=== PATIENT | male | born 1940 | race Caucasian/White ===

== ENCOUNTER 2017-04-06 21:07 | Inpatient (IN) | payer MEDICARE, OTHER ==
[2017-04-06 22:23] LABS: VENOUS BLOOD BASE EXCESS 4.2 mmol/L; VENOUS BLOOD HCO3 28.4 mmol/L (20-32); VENOUS BLOOD PH 7.46 (7.30-7.42)
--- NOTE | 2017-04-06 22:23 | ER Document Report ---
ED Respiratory Problem - General Chief Complaint: Breathing Difficulty Stated Complaint: DIFFICULTY BREATHING Time Seen by Provider: 04/06/17 22:02 Notes: Patient with known COPD who has had increasing cough for the past couple of days. This evening, about an hour ago, he began to have more labored and difficult respirations and was shaking. Patient has a history of dementia and is not very helpful providing history. History is obtained from his and apparently his daughter. Patient has COPD but no longer smokes. He does not have home oxygen or home nebulizers. In triage here, he is running a low-grade fever of 99.8 with a pulse rate of 124 and an O2 sat of 88% on room air. TRAVEL OUTSIDE OF THE [place] IN LAST 30 DAYS: No - Related Data Allergies/Adverse Reactions: prednisone [Prednisone] Adverse Reaction (Unknown, Verified 04/06/17 22:15) Home Medications: Current Home Medications B12/Levomefolate Calcium/B-6 [Foltx Tablet] 1 tab PO DAILY 04/06/17 [History] Benzonatate 200 mg PO TID PRN 04/06/17 [History] Hydrochlorothiazide 12.5 mg PO DAILY 04/06/17 [History] Insulin Glargine,Hum.rec.anlog [Lantus Insulin 100 Unit/1 ml 10 ml] 35 units SQ QHS 04/06/17 [History] Insulin Lispro [Humalog] See Protocol SQ PRN PRN 04/06/17 [History] Lorazepam [Ativan 0.5 mg Tablet] 0.5 mg PO BID 04/06/17 [History] Losartan Potassium 12.5 mg PO DAILY 04/06/17 [History] Primidone [Mysoline 50 mg Tablet] 50 mg PO BID 04/06/17 [History] Rivastigmine [Exelon 4.6 mg/24 Hr Transdermal Patch] 1 patch TD ASDIR PRN [History] Past Medical History - Social History Smoking Status: Former Smoker Cigarette use (# per day): No Frequency of alcohol use: None Drug Abuse: None Family History: None, Reviewed & Not Pertinent Patient has suicidal ideation: No Patient has homicidal ideation: No - Past Medical History Cardiac Medical History: Reports: Hx Hypertension Denies: Hx Coronary Artery Disease, Hx Heart Attack Pulmonary Medical History: Reports: Hx Asthma - ON SPIRIVA, Hx Bronchitis, Hx COPD, Hx Sleep Apnea Endocrine Medical History: Reports: Hx Diabetes Mellitus Type 1, Hx Diabetes Mellitus Type 2 Musculoskeltal Medical History: Reports Hx Arthritis - Immunizations Hx Diphtheria, Pertussis, Tetanus Vaccination: No Hx Pneumococcal Vaccination: 07/13/12 Review of Systems - Review of Systems Notes: REVIEW OF SYSTEMS: CONSTITUTIONAL : Denies fever. EENT: Denies eye, ear, nose or mouth or throat pain or other symptoms. CARDIOVASCULAR: Denies chest pain. RESPIRATORY: See HPI. GASTROINTESTINAL: Denies abdominal pain or nausea, vomiting, or diarrhea. GENITOURINARY: Denies difficulty or painful urinating, urinary frequency, blood in urine. MUSCULOSKELETAL: Denies back or neck pain. Denies joint pain or swelling. SKIN: Denies rash or skin lesions. NEUROLOGICAL: Denies LOC or altered mental status. patient has significant dementia and is a very poor historian. Denies headache. Denies sensory loss or motor deficits. ALL OTHER SYSTEMS REVIEWED AND NEGATIVE. Physical Exam - Vital signs Vitals: Temp Pulse Resp BP Pulse Ox 99.8 F 124 H 24 H 178/60 H 88 L 04/06/17 21:38 04/06/17 21:38 04/06/17 21:38 04/06/17 21:38 04/06/17 21:38 Interpretation: Tachycardic, Hypoxic, Tachypneic, Febrile - Low-grade - Notes Notes: PHYSICAL EXAMINATION: GENERAL: Well-appearing, in no acute distress. Pleasant and tries to answer questions, but seems confused. Vital signs are significant and abnormal with tachycardia and tachypnea. Also hypoxia of 88% on room air. Low-grade fever of 99.8. HEAD: Atraumatic, normocephalic. EYES: Pupils equal round and reactive to light, extraocular movements intact. ENT: oropharynx clear without exudates. Moist mucous membranes. NECK: Normal range of motion, supple. LUNGS: Breath sounds clear and equal bilaterally. HEART: Regular rate and rhythm without murmurs. ABDOMEN: Soft, nontender. No guarding or rebound. BACK: No tenderness throughout entire back. EXTREMITIES: Normal range of motion without pain. NEUROLOGICAL: normal gait. Normal sensory, motor, and reflex exams. Patient is not oriented.. PSYCH: Unable to assess SKIN: Warm, dry, no rashes. Course - Vital Signs Vital signs: Temp Pulse Resp BP Pulse Ox 103.9 F H 124 H 21 H 130/59 H 97 04/07/17 00:00 04/06/17 21:38 04/07/17 00:01 04/07/17 00:01 04/07/17 00:01 - Laboratory Result Diagrams: 04/06/17 22:08 04/06/17 22:08 Laboratory results interpreted by me: 04/06/17 04/06/17 04/06/17 22:08 22:08 22:08 WBC 13.0 H Hgb 13.1 L RDW 14.3 H Seg Neuts % (Manual) 88 H Lymphocytes % (Manual) 3 L Abs Neuts (Manual) 12.0 H VBG pH Sodium 126.9 L Chloride 86 L BUN 24 H Glucose 303 H Lactic Acid 2.3 H Urine Glucose (UA) 04/06/17 04/06/17 22:08 23:35 WBC Hgb RDW Seg Neuts % (Manual) Lymphocytes % (Manual) Abs Neuts (Manual) VBG pH 7.46 H Sodium Chloride BUN Glucose Lactic Acid Urine Glucose (UA) >=500 H - Diagnostic Test Radiology reviewed: Image reviewed, Reports reviewed - Chest x-ray read by radiology shows low lung volumes compatible with subsegmental atelectasis. No mention of infiltrate or pneumonia. - EKG Interpretation by Me EKG shows normal: Sinus rhythm Rate: Tachycardia Rhythm: NSR [place]/QRS: RBBB Critical Care Note - Critical Care Note Total time excluding time spent on procedures (mins): 45 Discharge - Discharge Clinical Impression: COPD exacerbation, Hyponatremia Pneumonia Qualifiers: Pneumonia type: due to unspecified organism Laterality: right Lung location: lower lobe of lung Qualified Code(s): J18.1 - Lobar pneumonia, unspecified organism Disposition: ADMITTED INPATIENT Admitting Provider: Hospitalist Unit Admitted: [facility]
[2017-04-06 22:24] LABS: HEMATOCRIT 39.5 % (37.9-51.0); HEMOGLOBIN 13.1 g/dL (13.5-17.0); HGB HCT DIFFERENCE -0.2; MEAN CORPUSCULAR HEMOGLOBIN 27.8 pg (27.0-33.4); MEAN CORPUSCULAR HGB CONC 33.1 g/dL (32.0-36.0); MEAN CORPUSCULAR VOLUME 84 fl (80-97); RED BLOOD COUNT 4.72 10^6/uL (4.35-5.55); RED CELL DISTRIBUTION WIDTH 14.3 % (11.5-14.0)
[2017-04-06] MEDS ORDERED: IPRATROPIUM/ALBUTEROL 0.5-2.5 MG/3 ML AMPUL NEB ONE (22:26)
[2017-04-06 22:35] LABS: PROTHROMBIN TIME 12.2 SEC (11.4-15.4)
[2017-04-06 22:37] LABS: ALANINE AMINOTRANSFERASE 43 U/L (21-72); ALKALINE PHOSPHATASE 124 U/L (38-126); ANION GAP 12 (5-19); ASPARTATE AMINO TRANSFERASE 48 U/L (17-59); BILIRUBIN,DIRECT 0.3 mg/dL (0.0-0.4); BILIRUBIN,TOTAL 0.8 mg/dL (0.2-1.3); BLOOD UREA NITROGEN 24 mg/dL (7-20); CALCIUM 8.8 mg/dL (8.4-10.2); CARBON DIOXIDE 29 mmol/L (22-30); CHLORIDE 86 mmol/L (98-107); CREATININE RESULT 1.16 mg/dL (0.52-1.25); GLUCOSE 303 mg/dL (75-110); POTASSIUM 4.1 mmol/L (3.6-5.0); SODIUM 126.9 mmol/L (137-145); TOTAL PROTEIN 7.4 g/dL (6.3-8.2)
--- NOTE | 2017-04-06 22:39 | RADIOLOGY REPORT (SQ) ---
EXAM DESCRIPTION: CHEST SINGLE VIEW COMPLETED DATE/TIME: 04/06/2017 10:30 pm REASON FOR STUDY: short of breath, fever, hypoxia COMPARISON: 2011. NUMBER OF VIEWS: One view. TECHNIQUE: Single frontal radiographic view of the chest acquired. LIMITATIONS: None. FINDINGS: LUNGS AND PLEURA: Low volumes with probable basilar subsegmental atelectasis. Upper lung harris are clear. MEDIASTINUM AND HILAR STRUCTURES: No masses. No contour abnormality. HEART AND VASCULAR STRUCTURES: Normal size. No evidence for failure. BONES: No acute findings. HARDWARE: None in the chest. OTHER: No other significant finding. IMPRESSION: Suspect mild basilar volume loss with generally low lung volumes. TECHNICAL DOCUMENTATION: JOB ID: [id number] [employer]- All Rights Reserved
[2017-04-06 22:40] LABS: BAND NEUTROPHILS % (MANUAL) 4 % (3-5); BASOPHILS % (MANUAL) 0 % (0-2); EOSINOPHILS % (MANUAL) 0 % (0-6); LYMPHOCYTES % (MANUAL) 3 % (13-45); TOTAL CELLS COUNTED 100
[2017-04-06 22:42] LABS: ANISOCYTOSIS SLIGHT; OVALOCYTES SLIGHT; POIKILOCYTOSIS SLIGHT
[2017-04-06] MEDS ORDERED: CEFTRIAXONE 1 GM/D5W RTU 50 ML IV ONE (23:25)
[2017-04-06] MEDS ORDERED: AZITHROMYCIN 250 MG TABLET PO ONE (23:34)
[2017-04-06] MEDS ORDERED: NORMAL SALINE 1000 ML 1,000 ML IV ONE (23:41)
[2017-04-06 23:54] LABS: APPEARANCE,URINE CLEAR; BILIRUBIN,URINE NEGATIVE (NEGATIVE); GLUCOSE, URINE >=500 mg/dL (NEGATIVE); KETONES,URINE NEGATIVE (NEGATIVE); LEUKOCYTE ESTERASE,URINE NEGATIVE (NEGATIVE); NITRITE,URINE NEGATIVE (NEGATIVE); PROTEIN,URINE NEGATIVE (NEGATIVE); URINE SPECIFIC GRAVITY 1.008; UROBILINOGEN,URINE NEGATIVE mg/dL (<2.0)
--- NOTE | 2017-04-06 23:59 | EKG REPORT ---
SEVERITY:- ABNORMAL ECG - SINUS TACHYCARDIA MULTIPLE ATRIAL PREMATURE COMPLEXES PROBABLE LEFT ATRIAL ABNORMALITY RIGHT BUNDLE BRANCH BLOCK : Confirmed by: Rosemarie Alfaro 06-Apr-2017 23:58:44
[2017-04-07] MEDS ORDERED: ACETAMINOPHEN 325 MG TABLET ONE (00:03)
[2017-04-07 00:11] LABS: ADD ON TESTING BLD IN LAB ACKNOWLEDGE
[2017-04-07 00:26] LABS: MAGNESIUM 1.6 mg/dL (1.6-2.3)
[2017-04-07] MEDS ORDERED: GLUCAGON,HUMAN RECOMB 1 MG INJ IM PRN (00:51)
[2017-04-07] MEDS ORDERED: DEXTROSE 50%-WATER 25 GM/50 ML DISP.SYRIN IV PRN ×2 (00:51)
[2017-04-07] MEDS ORDERED: DEXTROSE 40% GEL 15 GM TUBE PO PRN ×2 (00:51)
[2017-04-07] MEDS ORDERED: PROMETHAZINE HCL 25 MG TABLET PO PRN (00:54)
[2017-04-07] MEDS ORDERED: ALBUTEROL SULFATE 0.083% NEB 2.5 MG/3 ML AMPUL NEB PRN (00:55)
[2017-04-07] MEDS ORDERED: ACETAMINOPHEN 325 MG TABLET PO PRN (01:02)
[2017-04-07] MEDS ORDERED: GUAIFENESIN SYRP 200 MG/10 ML UDC PO PRN (01:02)
[2017-04-07] MEDS ORDERED: NORMAL SALINE 1000 ML 1,000 ML IV PRN (01:04)
[2017-04-07] MEDS ORDERED: METHYLPREDNISOLONE INJ 125 MG/2 ML SDV IV ONE ×2 (01:15→12:00)
--- NOTE | 2017-04-07 01:21 | PDOC H&P ---
History of Present Illness Admission Date/PCP: 04/06/17 23:46 KARO CAVANAUGH MD Patient complains of: Difficulty breathing History of Present Illness: DELLA ZHAO is a 76 year old male, with underlying non-home O2 dependent COPD, having been tobacco free for probably 30 years or more, along with obstructive sleep apnea, with CPAP, setting 3.5, who presents to the emergency room for evaluation of above complaint. Patient has been discussed with emergency room physician who evaluated the patient. Patient has underlying dementia and is able to provide basically no history whatsoever in terms of acute or chronic events, review of systems, personal habits, family history, etc. and daughter are present, with his approval, and are quite helpful and informative. old inpatient records are reviewed. Patient has a chronic cough, and chronic somewhat coarse breathing, but over the last 2 days this has gradually worsened. However, approximately an hour prior to presentation to the emergency room, breathing became much more labored and difficult, with patient having shaking chills. No nausea vomiting. No dysuria. Chronic diarrhea, without recent change. Up-to-date with flu and pneumonia vaccinations. No prior intubation for respiratory difficulty. No hospitalization over the last 3 months. His only antibiotic usage during that time span was a single intramuscular injection after patient fell on a pine cone. In triage, patient was running a low-grade fever 99.8 with a pulse rate of 124 and a room air saturation of 88%. Subsequent temperature of 104.0 in the emergency room cubicle itself. Blood pressure has remained stable. . Laboratory results are listed in [facility] and are reviewed. X-ray summary results are listed below, with full report(s) reviewed. . EKG reviewed and compared to a prior tracing from 01 February of last year. Social history/personal habits: . Has children. 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 Prior tobacco use as noted above. No alcohol or illicit drug use. Allergies/adverse reactions are listed in [facility] [facility] and are reviewed. Prednisone causes elevated blood sugar; no allergic reaction per se. Home medications initially autopopulated into [facility] may not accurately reflect patient's true medications, dosages, and/or frequencies. soils technician to reconcile medications. Unfortunately, patient not able to provide any information concerning medications/dosages/frequencies. REVIEW OF SYSTEMS: Constitutional: See history and present illness. Eyes: Wears glasses ENT: No swallowing problems or complaints. Partial hearing loss. Pulmonary: See history and present illness. Cardiovascular: No current complaints, including chest pain. Gastrointestinal: No current complaints, including nausea or vomiting. Skin: No current complaints, including rashes. Hematologic: Easy bruising. Neurologic: Chronic burning discomfort, mild, involving his feet. Musculoskeletal: Joint discomfort from arthritis. Psychiatric: Denies anxiety or depression. Endocrine: No current complaints, including polyuria. Genitourinary: No current complaints, including dysuria. PHYSICAL EXAMINATION: 5 feet 4 inches tall. 85.3 kg. BMI 32.3 kg/m. Blood pressure 130/59. Pulse 110 and regular. 95% saturation on 3 L oxygen per nasal cannula. Respirations are 22 and unlabored. Temperature 103.9 earlier; does not feel quite as warm at present. Slightly obese otherwise well-developed elderly male who appears a fair number of years younger than his stated age. Pleasant awake alert and cooperative. Appears to feel a bit under the weather, so to speak. and daughter are present at his side; patient approves. Skin is warm and dry. No grossly obvious evidence of rash in areas of skin examined. No subcutaneous nodules palpated. ENT: Hearing grossly normal to normal conversation. Tongue midline on protrusion pink and slightly tacky. Eyes: No scleral icterus. Pupils equal and reactive to light at 4 mm. Deridder conjunctivae. Neck is supple and nontender to gentle active range of motion and palpation. Midline trachea. No palpable thyroid nodule mass enlargement or tenderness. Lymphatic: No palpable cervical or clavicular nodes. Neck and lymphatic exams limited by patient body habitus. Psychiatric: Prominent dementia. Lungs: Auscultation reveals equal breath sounds bilaterally. No use of accessory respiratory muscles. Mildly coarse breath sounds diffusely through both lungs. No wheezing. Cardiovascular: Heart regular rate and rhythm, without gallop murmur or rub. No carotid or abdominal aortic bruits. No ankle or pedal edema. Faintly palpable dorsalis pedis pulses. Abdomen:soft slightly obese nontender with positive bowel sounds. Unable to adequately evaluate abdomen for masses or organomegaly due to body habitus. Extremities: Feet are warm and dry. No calf tenderness to compression. No grossly obvious visual evidence of calf swelling. Gentle manipulation of lower extremities fails to reveal any obvious evidence of injury or instability to knees hips or ankles. Neurologic: Moves upper extremities grossly normally. Patellar reflexes absent. Absent Babinski. Light touch difficult to evaluate due to his mental status.. Dorsiflexion and plantarflexion of feet 5 / 5 and symmetric. Past Medical History Cardiac Medical History: Reports: Hypertension Denies: Congestive Heart Failure, Coronary Artery Disease, DVT, Myocardial Infarction, Hyperlipidema, Pulmonary Embolism Pulmonary Medical History: Reports: Asthma - ON SPIRIVA, Bronchitis, Chronic Obstructive Pulmonary Disease (COPD) - No home O2., Sleep Apnea - Setting of 3.5 on home machine. Denies: Pneumonia, Tuberculosis EENT Medical History: Reports: Eyes - Glasses, Ears - Partial hearing loss Denies: Throat Neurological Medical History: Reports: Other - Dementia Denies: Hemorrhagic CVA, Ischemic CVA, Seizures Endocrine Medical History: Reports: Diabetes Mellitus Type 1 Denies: Diabetes Mellitus Type 2, Hyperthyroidism, Hypothyroidism Renal/ Medical History: Reports: None Malignancy Medical History: Reports: Skin Cancer GI Medical History: Denies: Cirrhosis, Gastroesophageal Reflux Disease, Hepatitis, Peptic Ulcer Disease Musculoskeltal Medical History: Reports: Arthritis Psychiatric Medical History: Denies: Alcohol Dependency, Depression, General Anxiety Disorder, Substance Abuse, Tobacco Dependency Hematology: Reports: Other - Easy bruising Denies: Anemia Infectious Medical History: Denies: Clostridium Difficile, Hepatitis B, Hepatitis C, Methicillin- Resistant Staph Aureus Past Surgical History Past Surgical History: Reports: Other - Complete dental extraction. Finger surgery. Denies: Pacemaker Social History Information Source: Relative - and daughter, Emergency Med Personnel, [facility] Records Lives with: Spouse/Significant other Smoking Status: Former Smoker Frequency of Alcohol Use: None Hx Recreational Drug Use: No Drugs: None Hx Prescription Drug Abuse: No - Advance Directive Resuscitation Status: Full Code Surrogate healthcare decision maker:: Family History Family History: None, Reviewed & Not Pertinent Parental Family History Reviewed: Yes - Mother in her 90s when she . Father of uncertain cause. Children Family History Reviewed: Yes - Diabetes mellitus and hyperlipidemia. Sibling(s) Family History Reviewed.: Yes - 2 siblings of cancer Medication/Allergy Home Medications: RX: Albuterol Sulfate [Proair HFA] 2 puff IH BID 04/07/17 RX: Albuterol Sulfate [Proair HFA] 2 puff IH BIDP PRN 04/07/17 RX: B12/Levomefolate Calcium/B-6 [Foltx Tablet] 1 tab PO DAILY 04/07/17 RX: B12/Levomefolate Calcium/B-6 [Foltx Tablet] 1 tab PO DAILY 04/07/17 RX: Benzonatate [Tessalon Perles 100 mg Capsule] 200 mg PO Q8HP PRN 04/07/17 RX: Dextrose [Dex4 Glucose] 4 gm PO PRN PRN 04/07/17 RX: Dextrose [Glucose] 4 gm PO PRN PRN 04/07/17 RX: Hydrochlorothiazide 12.5 mg PO DAILY 04/07/17 RX: Insulin Glargine,Hum.rec.anlog [Lantus Insulin 100 Unit/1 ml 10 ml] 35 unit SUBCUT QHS 04/07/17 RX: Insulin Lispro [Humalog Insulin (Lispro) 100 unit/mL] 5 unit SUBCUT PC 04/07 RX: Insulin Lispro [Humalog] 5 unit SQ MEALS 04/07/17 RX: Lorazepam [Ativan 0.5 mg Tablet] 0.5 mg PO BID 04/07/17 RX: Lorazepam [Ativan 0.5 mg Tablet] 0.5 mg PO BID 04/07/17 RX: Losartan Potassium 12.5 mg PO DAILY 04/07/17 RX: Losartan Potassium [Cozaar 25 mg Tablet] 12.5 mg PO DAILY 04/07/17 RX: Primidone [Mysoline 50 mg Tablet] 50 mg PO BID@0800,1500 04/07/17 RX: Primidone [Mysoline] 50 mg PO BID 04/07/17 RX: Rivastigmine [Exelon 4.6 mg/24 Hr Transdermal Patch] 1 each TD DAILY RX: Rivastigmine [Exelon 4.6 mg/24 Hr Transdermal Patch] 1 each TD DAILY RX: Acetaminophen [Tylenol 325 mg Tablet] 650 mg PO Q4HP PRN tablet 04/08/17 RX: Guaifenesin [Robitussin Syrup 200 mg/10 ml Ud Cup] 200 mg PO Q4HP PRN udc 04/08/17 Allergies/Adverse Reactions: prednisone [Prednisone] Adverse Reaction (Unknown, Verified 04/07/17 00:52) elev bld sugar Physical Exam Vital Signs: Temp Pulse Resp BP Pulse Ox 103.9 F H 124 H 21 H 130/59 H 97 04/07/17 00:00 04/06/17 21:38 04/07/17 00:01 04/07/17 00:01 04/07/17 00:01 Results Impressions: Chest X-Ray 04/06/17 22:04 IMPRESSION: Suspect mild basilar volume loss with generally low lung volumes. Assessment & Plan - Diagnosis (1) COPD exacerbation Is this a current diagnosis for this admission?: Yes (2) Hyponatremia Is this a current diagnosis for this admission?: YesPlan: Follow-up chemistry. (3) Pneumonia of both lower lobes Qualifiers: Pneumonia type: due to unspecified organism Qualified Code(s): J18.9 - Pneumonia, unspecified organism Is this a current diagnosis for this admission?: YesPlan: Patient will be admitted under COPD exacerbation and pneumonia protocol. Incentive spirometry twice a day. Scheduled DuoNeb's. As needed albuterol nebs. Solu-Medrol. Prevacid for gastritis prophylaxis. Antibiotics will consist of Rocephin and oral Zithromax. Patient is a full code. I have strongly encouraged patient not to get out of bed without notifying staff , to avoid a fall with injury. Knee high SCDs for DVT prophylaxis, along with subcutaneous Lovenox. Impression and plans were discussed with patient, , and daughter, all of whom concur. Time spent in evaluation and management of patient: 62 minutes. (4) Sepsis Qualifiers: Sepsis type: sepsis due to unspecified organism Qualified Code(s): A41.9 - Sepsis, unspecified organism Is this a current diagnosis for this admission?: Yes (5) Dementia Qualifiers: Dementia type: unspecified type Dementia behavioral disturbance: without behavioral disturbance Qualified Code(s): F03.90 - Unspecified dementia without behavioral disturbance Is this a current diagnosis for this admission?: YesPlan: Resume home medications as appropriate once these have been determined and reviewed. (6) Diabetes mellitus type 1 Qualifiers: Diabetes mellitus complication status: with neurologic complications Diabetes mellitus complication detail: with unspecified neuropathy Qualified Code(s): E10.40 - Type 1 diabetes mellitus with diabetic neuropathy, unspecified Is this a current diagnosis for this admission?: YesPlan: Clear liquid diet, till certain that respiratory status is improving. Accu- Cheks with appropriate sliding scale coverage. Resume home medications as appropriate once these have been determined and reviewed. - Time Anticipated discharge: Home Within: Other - Inpatient Certification Based on my medical assessment, after consideration of the patient's comorbidities, presenting symptoms, or acuity I expect that the services needed warrant INPATIENT care.: Yes I certify that my determination is in accordance with my understanding of Medicare's requirements for reasonable and necessary INPATIENT services [42 CFR 412.3e].: Yes Medical Necessity: Need Close Monitoring Due to Risk of Patient Decompensation, Need For Continuous Telemetry Monitoring, Need for Nebulizer Therapy and Monitoring of Response, Need for IV Antibiotics, Risk of Complication if Not Cared For in Hospital, Risk of Diagnosis Which Will Require Inpatient Eval/Care/ Monitoring Post Hospital Care: D/C or Transfer Summary
[2017-04-07] MEDS: METHYLPREDNISOLONE INJ 125 MG/2 ML SDV IV SCH ×2 (02:27→17:48)
[2017-04-07] MEDS: LANSOPRAZOLE 30 MG TAB.RAP.DR PO SCH (05:09)
[2017-04-07 07:17] LABS: HEMATOCRIT 37.8 % (37.9-51.0); HEMOGLOBIN 12.7 g/dL (13.5-17.0); HGB HCT DIFFERENCE 0.3; MEAN CORPUSCULAR HEMOGLOBIN 27.7 pg (27.0-33.4); MEAN CORPUSCULAR HGB CONC 33.5 g/dL (32.0-36.0); MEAN CORPUSCULAR VOLUME 83 fl (80-97); RED BLOOD COUNT 4.58 10^6/uL (4.35-5.55); RED CELL DISTRIBUTION WIDTH 14.1 % (11.5-14.0); WHITE BLOOD COUNT 15.9 10^3/uL (4.0-10.5)
[2017-04-07 07:39] LABS: ANION GAP 12 (5-19); BLOOD UREA NITROGEN 20 mg/dL (7-20); CALCIUM 8.7 mg/dL (8.4-10.2); CARBON DIOXIDE 25 mmol/L (22-30); CHLORIDE 93 mmol/L (98-107); CREATININE RESULT 1.13 mg/dL (0.52-1.25); GLUCOSE 269 mg/dL (75-110); POTASSIUM 4.2 mmol/L (3.6-5.0); SODIUM 129.5 mmol/L (137-145)
[2017-04-07 07:54] LABS: BAND NEUTROPHILS % (MANUAL) 8 % (3-5); BASOPHILS % (MANUAL) 0 % (0-2); EOSINOPHILS % (MANUAL) 0 % (0-6); LYMPHOCYTES % (MANUAL) 0 % (13-45); TOTAL CELLS COUNTED 100
[2017-04-07 07:56] LABS: ANISOCYTOSIS SLIGHT; POIKILOCYTOSIS SLIGHT
[2017-04-07 07:58] LABS: OVALOCYTES SLIGHT
[2017-04-07] MEDS: IPRATROPIUM/ALBUTEROL 0.5-2.5 MG/3 ML AMPUL NEB SCH ×3 (08:09→19:55)
[2017-04-07] MEDS: INSULIN LISPRO 100 UNIT/ML 3 ML VIAL SUBCUT PRN ×5 (08:23→22:59)
[2017-04-07] MEDS ORDERED: INSULIN GLARGINE,HUM.REC.ANLOG 1,000 UNIT/10 ML UNIT SUBCUT PRN (10:20)
[2017-04-07] MEDS ORDERED: LOSARTAN POTASSIUM 25 MG TABLET PO ONE (11:15)
[2017-04-07] MEDS: CEFTRIAXONE 1 GM/D5W RTU 50 ML IV SCH (11:30)
[2017-04-07] MEDS: AZITHROMYCIN 250 MG TABLET PO SCH (11:32)
[2017-04-07] MEDS: ENOXAPARIN SODIUM INJ 40 MG/0.4 ML DISP.SYRIN SUBCUT SCH (11:33)
[2017-04-07] MEDS ORDERED: RIVASTIGMINE 4.6 MG/24 HR PATCH.TD24 TD ONE (12:00)
--- NOTE | 2017-04-07 12:58 | Progress Note ---
Provider Note Provider Note: admitted early this morning with altered mental state and difficulty breathing and found to have pneumonia. his at the [facility] notes he is already much better after some IVFs and abx, breathing easier and resting comfortably, so much so that she asks me not to wake him. she confirms a severe dementia but they've been together for 58yrs and she intends to care for him at home "until the end". he is resting comfortably, no increased work of breathing but bibasilar rales noted, faint exp wheezes anteriorly, cardio rrr without m/r/g, abdomen is soft with good BSs, trace edema at the ankles. labs and imaging reviewed. repeat lactic acid 1.7, Na up to 129, renal function ok, mg 1.6, wbcs up to 16 a/p: -CAP - continue rocephin/zmax -hyponatremia -COPD exac -sepsis evidenced by leukocytosis, tachypnea, hypoxia and source -dementia continue current level of care; resume home meds
[2017-04-07] MEDS: PRIMIDONE 50 MG TABLET PO SCH (14:39)
[2017-04-07] MEDS: LORAZEPAM 0.5 MG TABLET PO SCH (17:47)
[2017-04-07] MEDS ORDERED: INSULIN GLARGINE,HUM.REC.ANLOG 300 UNIT/3 ML INSULN.PEN SUBCUT SCH (22:00)
[2017-04-07] MEDS ORDERED: INSULIN LISPRO 100 UNIT/ML 3 ML VIAL SUBCUT ONE (23:15)
[2017-04-08] MEDS: METHYLPREDNISOLONE INJ 125 MG/2 ML SDV IV SCH ×2 (01:07→09:45)
[2017-04-08 05:32] LABS: ANION GAP 10 (5-19); BLOOD UREA NITROGEN 26 mg/dL (7-20); CALCIUM 9.3 mg/dL (8.4-10.2); CARBON DIOXIDE 27 mmol/L (22-30); CHLORIDE 97 mmol/L (98-107); CREATININE RESULT 0.98 mg/dL (0.52-1.25); GLUCOSE 305 mg/dL (75-110); POTASSIUM 4.5 mmol/L (3.6-5.0); SODIUM 133.5 mmol/L (137-145)
[2017-04-08] MEDS: LANSOPRAZOLE 30 MG TAB.RAP.DR PO SCH (05:36)
[2017-04-08 05:41] LABS: HEMATOCRIT 35.1 % (37.9-51.0); HEMOGLOBIN 11.8 g/dL (13.5-17.0); HGB HCT DIFFERENCE 0.3; MEAN CORPUSCULAR HEMOGLOBIN 27.9 pg (27.0-33.4); MEAN CORPUSCULAR HGB CONC 33.7 g/dL (32.0-36.0); MEAN CORPUSCULAR VOLUME 83 fl (80-97); RED BLOOD COUNT 4.23 10^6/uL (4.35-5.55); RED CELL DISTRIBUTION WIDTH 14.2 % (11.5-14.0); WHITE BLOOD COUNT 13.8 10^3/uL (4.0-10.5)
[2017-04-08 06:25] LABS: BASOPHILS % (MANUAL) 0 % (0-2); EOSINOPHILS % (MANUAL) 0 % (0-6); LYMPHOCYTES % (MANUAL) 7 % (13-45); TOTAL CELLS COUNTED 100; TOXIC GRANULATION SLIGHT
[2017-04-08 06:26] LABS: ANISOCYTOSIS SLIGHT; BURR CELLS SLIGHT
[2017-04-08] MEDS: INSULIN LISPRO 100 UNIT/ML 3 ML VIAL SUBCUT PRN ×2 (07:51→12:47)
[2017-04-08] MEDS: PRIMIDONE 50 MG TABLET PO SCH (07:51)
[2017-04-08] MEDS: IPRATROPIUM/ALBUTEROL 0.5-2.5 MG/3 ML AMPUL NEB SCH ×2 (07:56→13:21)
[2017-04-08] MEDS: AZITHROMYCIN 250 MG TABLET PO SCH (09:46)
[2017-04-08] MEDS: LORAZEPAM 0.5 MG TABLET PO SCH (09:46)
[2017-04-08] MEDS: ENOXAPARIN SODIUM INJ 40 MG/0.4 ML DISP.SYRIN SUBCUT SCH (09:46)
[2017-04-08] MEDS: CEFTRIAXONE 1 GM/D5W RTU 50 ML IV SCH (09:46)
[2017-04-08] MEDS ORDERED: LOSARTAN POTASSIUM 25 MG TABLET PO SCH (10:00)
[2017-04-08] MEDS ORDERED: RIVASTIGMINE 4.6 MG/24 HR PATCH.TD24 TD SCH (10:00)
--- NOTE | 2017-04-08 14:21 | PDOC DISCHARGE SUMMARY ---
General - Admit/Disc Date/PCP Admission Date/Primary Care Provider: 04/07/17 00:55 KARO CAVANAUGH MD Discharge Date: 04/08/17 - Discharge Diagnosis (1) Diabetes mellitus Is this a current diagnosis for this admission?: Yes (2) Hyponatremia Is this a current diagnosis for this admission?: Yes (3) Pneumonia Is this a current diagnosis for this admission?: Yes (4) Sepsis Is this a current diagnosis for this admission?: Yes (5) Dementia Is this a current diagnosis for this admission?: Yes - Additional Information Resuscitation Status: Full Code Home Medications: Albuterol Sulfate [Proair HFA] 2 puff IH BID 04/07/17 Albuterol Sulfate [Proair HFA] 2 puff IH BIDP PRN 04/07/17 B12/Levomefolate Calcium/B-6 [Foltx Tablet] 1 tab PO DAILY 04/07/17 B12/Levomefolate Calcium/B-6 [Foltx Tablet] 1 tab PO DAILY 04/07/17 Benzonatate [Tessalon Perles 100 mg Capsule] 200 mg PO Q8HP PRN 04/07/17 Dextrose [Dex4 Glucose] 4 gm PO PRN PRN 04/07/17 Dextrose [Glucose] 4 gm PO PRN PRN 04/07/17 Hydrochlorothiazide 12.5 mg PO DAILY 04/07/17 Insulin Glargine,Hum.rec.anlog [Lantus Insulin 100 Unit/1 ml 10 ml] 35 unit SUBCUT QHS 04/07/17 Insulin Lispro [Humalog Insulin (Lispro) 100 unit/mL] 5 unit SUBCUT PC 04/07/17 Insulin Lispro [Humalog] 5 unit SQ MEALS 04/07/17 Lorazepam [Ativan 0.5 mg Tablet] 0.5 mg PO BID 04/07/17 Lorazepam [Ativan 0.5 mg Tablet] 0.5 mg PO BID 04/07/17 Losartan Potassium 12.5 mg PO DAILY 04/07/17 Losartan Potassium [Cozaar 25 mg Tablet] 12.5 mg PO DAILY 04/07/17 Primidone [Mysoline 50 mg Tablet] 50 mg PO BID@0800,1500 04/07/17 Primidone [Mysoline] 50 mg PO BID 04/07/17 Rivastigmine [Exelon 4.6 mg/24 Hr Transdermal Patch] 1 each TD DAILY 04/07/17 Rivastigmine [Exelon 4.6 mg/24 Hr Transdermal Patch] 1 each TD DAILY 04/07/17 Acetaminophen [Tylenol 325 mg Tablet] 650 mg PO Q4HP PRN tablet 04/08/17 Guaifenesin [Robitussin Syrup 200 mg/10 ml Ud Cup] 200 mg PO Q4HP PRN udc 04/08 History of Present Illness Patient complains of: Sudden onset of shortness of breath. History of Present Illness: DELLA ZHAO is a 76 year old male sudden onset of shortness of breath. He was taken to the emergency department by family. When he initially presented he had a temperature of 103.9. He was diagnosed with pneumonia, sepsis, COPD with exacerbation. Hospital Course Hospital Course: Hospitalization the patient's sodium corrected with IV fluids. He was treated with systemic corticosteroids for COPD with exacerbation. He was treated with azithromycin and ceftriaxone for pneumonia. His admission chest x-ray was unremarkable except for volume loss and basilar atelectasis. So far, the patient's blood and urine cultures remain negative. The patient has been afebrile for greater than 36 hours. He does have a mild leukocytosis but I attribute this to steroids. He will be discharged on oral antibiotics and close outpatient follow-up will be arranged. Physical Exam Vital Signs: Temp Pulse Resp BP Pulse Ox 97.9 F 87 18 124/65 94 04/08/17 10:58 04/08/17 13:23 04/08/17 13:23 04/08/17 10:58 04/08/17 13:23 Intake & Output 04/07/17 04/08/17 04/09/17 06:59 06:59 06:59 Intake Total 375 995 279 Output Total 675 650 Balance -300 345 279 Weight 83.1 kg General appearance: PRESENT: no acute distress, cooperative Eye exam: PRESENT: EOMI, PERRLA Mouth exam: PRESENT: moist, neck supple, tongue midline Respiratory exam: PRESENT: clear to auscultation tomas Cardiovascular exam: PRESENT: RRR GI/Abdominal exam: PRESENT: normal bowel sounds, soft Rectal exam: PRESENT: deferred Skin exam: PRESENT: dry, intact, warm. ABSENT: cyanosis, rash Results Laboratory Results: 04/08/17 04:07 04/08/17 04:07 04/08/17 04/08/17 04:07 04:07 WBC 13.8 H RBC 4.23 L Hgb 11.8 L Hct 35.1 L MCV 83 MCH 27.9 MCHC 33.7 RDW 14.2 H Plt Count 220 Seg Neutrophils % Not Reportable Lymphocytes % Not Reportable Monocytes % Not Reportable Eosinophils % Not Reportable Basophils % Not Reportable Absolute Neutrophils Not Reportable Absolute Lymphocytes Not Reportable Absolute Monocytes Not Reportable Absolute Eosinophils Not Reportable Absolute Basophils Not Reportable Sodium 133.5 L Potassium 4.5 Chloride 97 L Carbon Dioxide 27 Anion Gap 10 BUN 26 H Creatinine 0.98 Est GFR ( Amer) > 60 Est GFR (Non-Af Amer) > 60 Glucose 305 H Calcium 9.3 Impressions: Chest X-Ray 04/06/17 22:04 IMPRESSION: Suspect mild basilar volume loss with generally low lung volumes. Plan Discharge Plan: Patient will resume all of his normal outpatient medications. He will be discharged on oral Vantin. He should complete a 10 day course of oral and IV antibiotics. Close outpatient follow-up will be arranged. Time Spent: Greater than 30 Minutes - And 30 minutes were required to disposition the patient to home.
[2017-04-08 14:45] VITALS: BP 114/55
[2017-04-09] MEDS ORDERED: CEFPODOXIME 200 MG TABLET PO SCH (10:00)
== END 2017-04-08 15:27 | disposition home or self-care (01) | DRG 871 ==
LOC: ER 21:07 → EH 23:46 → UNDOADMIN 23:46 → EH 04-07 00:55 → 3N 04-07 03:16
PROVIDERS: ADMIT Family Medicine; ATTEND Family Medicine
DX: A41.9 Sepsis, unspecified organism (principal); J18.1 Lobar pneumonia, unspecified organism; J44.0 Chronic obstructive pulmonary disease with (acute) lower respiratory infection; J44.1 Chronic obstructive pulmonary disease with (acute) exacerbation; E87.1 Hypo-osmolality and hyponatremia; I10 Essential (primary) hypertension; E10.40 Type 1 diabetes mellitus with diabetic neuropathy, unspecified; G47.33 Obstructive sleep apnea (adult) (pediatric); F03.90 Unspecified dementia, unspecified severity, without behavioral disturbance, psychotic disturbance, mood disturbance, and anxiety; Z79.4 Long term (current) use of insulin; Z79.899 Other long term (current) drug therapy; Z87.891 Personal history of nicotine dependence
CPT/HCPCS: 36415; 71010; 80048; 80053; 81001; 82803; 82962; 83605; 83735; 85025; 85610; 87040; 87086; 93005; 93010; 94640; 94799; 99291; J0696; J1650; J1815; J2930; J3490; J7030; J7620

== ENCOUNTER 2018-02-07 12:08 | Observation (INO) | payer MEDICARE, OTHER ==
[~2018-02-07 12:08] MED LIST: ROCURONIUM BROMIDE INJ 50 MG/5 ML VIAL IV ONE; SUCCINYLCHOLINE CHLORIDE INJ 200 MG/10 ML VIAL ONE
--- NOTE | 2018-02-07 12:48 | ER Document Report ---
ED Medical Screen (RME) - General Chief Complaint: Abdominal Pain Stated Complaint: ABDOMINAL PAIN Time Seen by Provider: 02/07/18 12:41 Notes: 77-year-old male patient with some dementia had onset today of lower abdominal pain. He has been rubbing his abdomen and his groin area. On exam he seems most tender in the left lower quadrant of his abdomen. I have greeted and performed a rapid initial assessment of this patient. A comprehensive ED assessment and evaluation of the patient, analysis of test results and completion of the medical decision making process will be conducted by additional ED providers. TRAVEL OUTSIDE OF THE [place] IN LAST 30 DAYS: No - Related Data Allergies/Adverse Reactions: prednisone [Prednisone] Adverse Reaction (Unknown, Verified 02/07/18 12:41) elev bld sugar Past Medical History - Past Medical History Cardiac Medical History: Reports: Hx Hypertension Denies: Hx Congestive Heart Failure, Hx Coronary Artery Disease, Hx DVT, Hx Heart Attack, Hx Hypercholesterolemia, Hx Pulmonary Embolism Pulmonary Medical History: Reports: Hx Asthma - ON SPIRIVA, Hx Bronchitis, Hx COPD - No home O2., Hx Sleep Apnea - Setting of 3.5 on home machine. Denies: Hx Pneumonia, Hx Tuberculosis Neurological Medical History: Denies: Hx Cerebrovascular Accident, Hx Seizures Endocrine Medical History: Reports: Hx Diabetes Mellitus Type 1. Denies: Hx Diabetes Mellitus Type 2, Hx Hyperthyroidism, Hx Hypothyroidism Renal/ Medical History: Denies: Hx Peritoneal Dialysis Malignancy Medical History: Reports Hx Skin Cancer GI Medical History: Denies: Hx Cirrhosis, Hx Gastroesophageal Reflux Disease, Hx Hepatitis Musculoskeltal Medical History: Reports Hx Arthritis Psychiatric Medical History: Denies: Hx Depression Infectious Medical History: Denies: Hx C-Diff, Hx Hepatitis, Hx MRSA Past Surgical History: Reports: Other - Complete dental extraction. Finger surgery.. Denies: Hx Pacemaker - Immunizations Hx Diphtheria, Pertussis, Tetanus Vaccination: No Physical Exam - Vital signs Vitals: Temp Pulse Resp BP Pulse Ox 97.6 F 58 L 20 152/73 H 98 02/07/18 12:17 02/07/18 12:17 02/07/18 12:17 02/07/18 12:17 02/07/18 12:17 Course - Vital Signs Vital signs: Temp Pulse Resp BP Pulse Ox 97.6 F 58 L 20 152/73 H 98 02/07/18 12:17 02/07/18 12:17 02/07/18 12:17 02/07/18 12:17 02/07/18 12:17
[2018-02-07 13:27] LABS: APPEARANCE,URINE CLEAR; BILIRUBIN,URINE NEGATIVE (NEGATIVE); COLOR,URINE YELLOW; GLUCOSE, URINE NEGATIVE (NEGATIVE); KETONES,URINE NEGATIVE (NEGATIVE); LEUKOCYTE ESTERASE,URINE NEGATIVE (NEGATIVE); NITRITE,URINE NEGATIVE (NEGATIVE); PROTEIN,URINE NEGATIVE (NEGATIVE); URINE SPECIFIC GRAVITY 1.011
[2018-02-07 13:30] LABS: ABSOLUTE EOSINOPHILS # (AUTO) 0.1 10^3/uL (0.0-0.6); ABSOLUTE LYMPHOCYTES (AUTO) 0.9 10^3/uL (0.5-4.7); ABSOLUTE MONOCYTES (AUTO) 0.5 10^3/uL (0.1-1.4); ABSOLUTE NEUT (AUTO) 4.8 10^3/uL (1.7-8.2); BASOPHILS % (AUTO) 0.8 % (0-2); EOSINOPHILS % (AUTO) 1.1 % (0-6); HEMATOCRIT 44.4 % (37.9-51.0); HEMOGLOBIN 15.5 g/dL (13.5-17.0); LYMPHOCYTES % (AUTO) 14.7 % (13-45); MEAN CORPUSCULAR HEMOGLOBIN 29.3 pg (27.0-33.4); MEAN CORPUSCULAR VOLUME 84 fl (80-97); MONOCYTES % (AUTO) 7.9 % (3-13); PLATELET COUNT 239 10^3/uL (150-450); RED BLOOD COUNT 5.29 10^6/uL (4.35-5.55); RED CELL DISTRIBUTION WIDTH 14.7 % (11.5-14.0); SEGMENTED NEUTROPHILS % (AUTO) 75.5 % (42-78); TOTAL CELLS COUNTED % (AUTO) 100 %; WHITE BLOOD COUNT 6.3 10^3/uL (4.0-10.5)
--- NOTE | 2018-02-07 13:30 | RADIOLOGY REPORT (SQ) ---
EXAM DESCRIPTION: CT LTD RENAL STONE PROTOCOL ON COMPLETED DATE/TIME: 02/07/2018 1:17 pm REASON FOR STUDY: LLQ abd pain radiates to groin COMPARISON: None. TECHNIQUE: CT scan of the abdomen and pelvis performed without intravenous or oral contrast. Images reviewed with lung, soft tissue, and bone windows. Reconstructed coronal and sagittal MPR images revi ewed. All images stored on PACS. All CT scanners at this facility use dose modulation, iterative reconstruction, and/or weight based d osing when appropriate to reduce radiation dose to as low as reasonably achievable (ALARA). [facility]: Dose Right [facility]: CareDose [facility]: Dose Right [facility]: Teradose 4D [facility]: Smart Betterific RADIATION DOSE: CT Rad equipment meets quality standard of care and radiation dose reduction techniq ues were employed. CTDIvol: 7.6 mGy. DLP: 408 mGy-cm.mGy. LIMITATIONS: None. FINDINGS: LOWER CHEST: No significant findings. No nodules or infiltrates. NON-CONTRASTED LIVER, SPLEEN, ADRENALS: Evaluation limited by lack of IV contrast. No identified sign ificant masses. PANCREAS: No masses. No peripancreatic inflammatory changes. GALLBLADDER: No identified stones by CT criteria. No inflammatory changes to suggest cholecystitis. RIGHT KIDNEY AND URETER: No suspicious masses. Assessment limited by lack of IV contrast. No signif icant calcifications. No hydronephrosis or hydroureter. LEFT KIDNEY AND URETER: No suspicious masses. Assessment limited by lack of IV contrast. No signifi cant calcifications. No hydronephrosis or hydroureter. AORTA AND RETROPERITONEUM: Atherosclerotic calcifications. No aneurysm. No retroperitoneal masses or adenopathy. BOWEL AND PERITONEAL CAVITY: There is a loop of small bowel extending into the left inguinal canal wi th fluid distended loops proximally measuring up to 3.6 cm compatible with small bowel obstruction in the setting of an incarcerated hernia. No pneumatosis or free air. Loops of bowel otherwise unrema rkable. APPENDIX: Normal. PELVIS, BLADDER, AND ABDOMINAL WALL:No abnormal masses. No free fluid. Bladder normal. BONES: Degenerative change without fracture or suspicious osseous lesion. OTHER: No other significant finding. IMPRESSION: INCARCERATED LEFT INGUINAL HERNIA RESULTING IN SMALL BOWEL OBSTRUCTION. SURGICAL CONSUL TATION RECOMMENDED. ADDITIONAL CHRONIC CHANGES ABOVE. COMMENT: Quality ID # [id number]: Final reports with documentation of one or more dose reduction techniques (e.g., Automated exposure control, adjustment of the mA and/or kV according to patient size, use of iterative reconstruction technique) TECHNICAL DOCUMENTATION: JOB ID: [id number] [employer]- All Rights Reserved Reading location - IP/workstation name: [email or web address]
[2018-02-07 13:40] LABS: ALANINE AMINOTRANSFERASE 43 U/L (21-72); ALBUMIN 4.4 g/dL (3.5-5.0); ALKALINE PHOSPHATASE 76 U/L (38-126); ANION GAP 12 (5-19); ASPARTATE AMINO TRANSFERASE 38 U/L (17-59); BILIRUBIN,DIRECT 0.3 mg/dL (0.0-0.4); BILIRUBIN,TOTAL 0.9 mg/dL (0.2-1.3); BLOOD UREA NITROGEN 12 mg/dL (7-20); CALCIUM 9.8 mg/dL (8.4-10.2); CARBON DIOXIDE 33 mmol/L (22-30); CHLORIDE 88 mmol/L (98-107); GLUCOSE 108 mg/dL (75-110); POTASSIUM 4.2 mmol/L (3.6-5.0); SODIUM 133.2 mmol/L (137-145); TOTAL PROTEIN 7.6 g/dL (6.3-8.2)
[2018-02-07] MEDS ORDERED: MORPHINE SULFATE 10 MG/ML INJ IV ONE (13:57)
[2018-02-07] MEDS ORDERED: DEXTROSE 5%-1/2 NORMAL SALINE 1,000 ML IV ONE (13:59)
[2018-02-07] MEDS ORDERED: ONDANSETRON HCL INJ/PF 4 MG/2 ML SDV IV ONE (13:59)
--- NOTE | 2018-02-07 14:07 | ER Document Report ---
ED GI/ - General Chief Complaint: Abdominal Pain Stated Complaint: ABDOMINAL PAIN Time Seen by Provider: 02/07/18 12:41 Notes: 77-year-old male. History of dementia. History of diarrhea recently. Attributed initially to his new dementia medication. Began grabbing his groin area complaining of pain today. Denies any fever, chills, sweats. Denies any other symptoms at this time. Of note patient does have dementia so history is limited. TRAVEL OUTSIDE OF THE [place] IN LAST 30 DAYS: No - HPI Patient complains to provider of: Abdominal pain, Groin pain Onset: Last week Timing/Duration: Gradual Severity at maximum: Moderate Severity in ED: Moderate - Related Data Allergies/Adverse Reactions: prednisone [Prednisone] Adverse Reaction (Unknown, Verified 02/07/18 12:41) elev bld sugar Past Medical History - General Information source: Relative - Social History Smoking Status: Unknown if Ever Smoked Cigarette use (# per day): No Chew tobacco use (# tins/day): No Frequency of alcohol use: None Drug Abuse: None Lives with: Family Family History: None, Reviewed & Not Pertinent Patient has suicidal ideation: No Patient has homicidal ideation: No - Past Medical History Cardiac Medical History: Reports: Hx Hypertension Denies: Hx Congestive Heart Failure, Hx Coronary Artery Disease, Hx DVT, Hx Heart Attack, Hx Hypercholesterolemia, Hx Pulmonary Embolism Pulmonary Medical History: Reports: Hx Asthma - ON SPIRIVA, Hx Bronchitis, Hx COPD - No home O2., Hx Sleep Apnea - Setting of 3.5 on home machine. Denies: Hx Pneumonia, Hx Tuberculosis Neurological Medical History: Denies: Hx Cerebrovascular Accident, Hx Seizures Endocrine Medical History: Reports: Hx Diabetes Mellitus Type 1. Denies: Hx Diabetes Mellitus Type 2, Hx Hyperthyroidism, Hx Hypothyroidism Renal/ Medical History: Denies: Hx Peritoneal Dialysis Malignancy Medical History: Reports Hx Skin Cancer GI Medical History: Denies: Hx Cirrhosis, Hx Gastroesophageal Reflux Disease, Hx Hepatitis Musculoskeltal Medical History: Reports Hx Arthritis Psychiatric Medical History: Denies: Hx Depression Infectious Medical History: Denies: Hx C-Diff, Hx Hepatitis, Hx MRSA Past Surgical History: Reports: Other - Complete dental extraction. Finger surgery.. Denies: Hx Pacemaker - Immunizations Hx Diphtheria, Pertussis, Tetanus Vaccination: No Hx Pneumococcal Vaccination: 07/13/12 Review of Systems - Review of Systems -: Yes ROS unobtainable due to patient's medical condition - Patient with dementia. History obtained from family members. Constitutional: No symptoms reported EENT: No symptoms reported Cardiovascular: No symptoms reported Respiratory: No symptoms reported Gastrointestinal: See HPI, Abdominal pain, Diarrhea. denies: Nausea Genitourinary: Pain - Left growing pain. denies: Burning, Dysuria Musculoskeletal: No symptoms reported Skin: No symptoms reported Hematologic/Lymphatic: No symptoms reported Neurological/Psychological: Confusion, Dementia. denies: Weakness, Numbness Physical Exam - Vital signs Vitals: Temp Pulse Resp BP Pulse Ox 97.6 F 58 L 20 152/73 H 98 02/07/18 12:17 02/07/18 12:17 02/07/18 12:17 02/07/18 12:17 02/07/18 12:17 Interpretation: Normal - General General appearance: Appears well, Alert - HEENT Head: Normocephalic, Atraumatic Eyes: Normal Pupils: PERRL - Respiratory Respiratory status: No respiratory distress Chest status: Nontender Breath sounds: Normal Chest palpation: Normal - Cardiovascular Rhythm: Regular Heart sounds: Normal auscultation Murmur: No - Abdominal Inspection: Normal Distension: No distension Bowel sounds: Hypoactive Tenderness: Tender, Other - Palpable mass in the left inguinal/scrotal region. Tender to the touch. 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 Organomegaly: No organomegaly - Genitourinary Inspection: Normal Tenderness: Other - Patient has tenderness in the scrotum and left inguinal canal consistent with inguinal hernia - Back Back: Normal, Nontender - Extremities General upper extremity: Normal inspection, Nontender, Normal color, Normal ROM , Normal temperature General lower extremity: Normal inspection, Nontender, Normal color, Normal ROM , Normal temperature, Normal weight bearing. No: Rain's sign - Neurological Neuro grossly intact: Yes Cognition: Short term memory loss [facility] [place] Coma Scale Eye Opening: Spontaneous [facility] [place] Coma Scale Motor: Obeys Commands - Skin Skin Temperature: Warm Skin Moisture: Dry Skin Color: Normal Course - Re-evaluation Re-evalutation: 02/07/18 14:07 Patient with evidence of bowel obstruction seen on CT scan. Likely from an inguinal hernia. Consulted with Dr. Fernandez for consultation possible admission. IV fluids, n.p.o., pain medication given. 02/07/18 14:28 Hernia reduction procedure: Family members are present for exam and procedure. There was a palpable mass in the left scrotal sac. Consistent with inguinal hernia. Slow steady pressure was used with some downward pressure from the suprapubic area. The bowel contents were palpable. Able to push into the left inguinal area without difficulty. There appeared to be reduction of hernia with no complications. 02/07/18 14:29 Surgeon was consulted for CT results showing possible small bowel obstruction. I did attempt at hernia reduction. There does not appear to be persistent hernia according to surgeons exam as well as mine. At this time he would like to observe for a few more hours while in the emergency department versus taken to the operating room. Will order a repeat abdominal plain film series in approximately 2 hours. Of note, family members are present and would prefer to have patient admitted and operated on sooner rather than later. Patient does have severe dementia and is reporting the pain is unreliable. Family members are concerned that he will have another incarcerated hernia which will be missed and then would have worsening symptoms. 02/07/18 14:38 02/07/18 14:53 At this time we are favoring admitting patient. Will have medicine see patient. Dr. Fernandez will be the admitting. Will proceed forward at this time. - Vital Signs Vital signs: Temp Pulse Resp BP Pulse Ox 97.6 F 58 L 20 152/73 H 98 02/07/18 12:17 02/07/18 12:17 02/07/18 12:17 02/07/18 12:17 02/07/18 12:17 - Laboratory Result Diagrams: 02/07/18 13:04 02/07/18 13:04 Laboratory results interpreted by la: 02/07/18 02/07/18 02/07/18 13:04 13:04 13:04 RDW 14.7 H Sodium 133.2 L Chloride 88 L Carbon Dioxide 33 H Urine Urobilinogen 4.0 H - EKG Interpretation by La EKG shows normal: [place], Intervals, QRS Complexes, ST-T Waves [place]/QRS: RBBB When compared to previous EKG there are: No significant change Discharge - Discharge Clinical Impression: Small bowel obstruction Inguinal hernia Qualifiers: Obstruction and gangrene presence: with obstruction but without gangrene Laterality: unilateral Recurrence: not specified as recurrent Qualified Code(s) : K40.30 - Unilateral inguinal hernia, with obstruction, without gangrene, not specified as recurrent Condition: Good Disposition: ADMITTED INPATIENT Admitting Provider: Surgicalist - [facility] Unit Admitted: Surgical Floor
[2018-02-07 14:14] LABS: INTERNATIONAL RATION (INR) 0.91; PROTHROMBIN TIME 12.7 SEC (11.4-15.4)
[2018-02-07 14:15] LABS: PARTIAL THROMBOPLASTIN TIME 27.7 SEC (23.5-35.8)
[2018-02-07] MEDS ORDERED: NORMAL SALINE 1000 ML 1,000 ML IV ONE (15:06)
--- NOTE | 2018-02-07 16:02 | PDOC H&P ---
History of Present Illness Admission Date/PCP: 02/07/18 15:34 KARO CAVANAUGH MD Patient complains of: left groin pains History of Present Illness: DELLA ZHAO is a 77 year old male who c/o left groin pains this am. No N/V. Went to ED and CT scan showed incarcerated left inguinal hernia with small bowel obstruction.ER physycian DR Mtz tried to rduce it in the ED. I saw him and the hernia appears to have been reduced. Patient has some history of dementia. Past Medical History Cardiac Medical History: Reports: Hypertension Denies: Congestive Heart Failure, Coronary Artery Disease, DVT, Myocardial Infarction, Hyperlipidema, Pulmonary Embolism Pulmonary Medical History: Reports: Asthma - ON SPIRIVA, Bronchitis, Chronic Obstructive Pulmonary Disease (COPD) - No home O2., Sleep Apnea - Setting of 3.5 on home machine. Denies: Pneumonia, Tuberculosis Neurological Medical History: Denies: Seizures Endocrine Medical History: Reports: Diabetes Mellitus Type 1 Denies: Diabetes Mellitus Type 2, Hyperthyroidism, Hypothyroidism Malignancy Medical History: Reports: Skin Cancer GI Medical History: Denies: Cirrhosis, Gastroesophageal Reflux Disease, Hepatitis Musculoskeltal Medical History: Reports: Arthritis Psychiatric Medical History: Denies: Depression Hematology: Denies: Anemia Infectious Medical History: Denies: Clostridium Difficile, Methicillin-Resistant Staph Aureus Past Surgical History Past Surgical History: Reports: Other - Complete dental extraction. Finger surgery. Denies: Pacemaker Social History Lives with: Family Smoking Status: Former Smoker Frequency of Alcohol Use: None - used to drink Hx Recreational Drug Use: No Drugs: None Hx Prescription Drug Abuse: No Family History Family History: None, Reviewed & Not Pertinent Parental Family History Reviewed: Yes Children Family History Reviewed: No Sibling(s) Family History Reviewed.: No Medication/Allergy Home Medications: Albuterol Sulfate [Proair HFA] 2 puff IH BID 04/07/17 Albuterol Sulfate [Proair HFA] 2 puff IH BIDP PRN 04/07/17 B12/Levomefolate Calcium/B-6 [Foltx Tablet] 1 tab PO DAILY 04/07/17 Hydrochlorothiazide 12.5 mg PO DAILY 04/07/17 Insulin Glargine,Hum.rec.anlog [Lantus Insulin 100 Unit/1 ml 10 ml] 35 unit SUBCUT QHS 04/07/17 Insulin Lispro [Humalog Insulin (Lispro) 100 unit/mL] 5 unit SUBCUT PC 04/07/17 Insulin Lispro [Humalog] 5 unit SQ MEALS 04/07/17 Lorazepam [Ativan 0.5 mg Tablet] 0.5 mg PO BID 04/07/17 Lorazepam [Ativan 0.5 mg Tablet] 0.5 mg PO BID 04/07/17 Losartan Potassium 12.5 mg PO DAILY 04/07/17 Losartan Potassium [Cozaar 25 mg Tablet] 12.5 mg PO DAILY 04/07/17 Primidone [Mysoline 50 mg Tablet] 50 mg PO BID@0800,1500 04/07/17 Primidone [Mysoline] 50 mg PO BID 04/07/17 Rivastigmine [Exelon 4.6 mg/24 Hr Transdermal Patch] 1 each TD DAILY 04/07/17 Rivastigmine [Exelon 4.6 mg/24 Hr Transdermal Patch] 1 each TD DAILY 04/07/17 Acetaminophen [Tylenol 325 mg Tablet] 650 mg PO Q4HP PRN tablet 04/08/17 Cephalexin [Cephalexin 500 MG Capsule] 500 mg PO DAILY 02/07/18 Cyanocobalamin (Vitamin B-12) [Vitamin B-12] 1,000 mcg PO Q30MP PRN 02/07/18 Sertraline HCl 25 mg PO BID 02/07/18 Allergies/Adverse Reactions: prednisone [Prednisone] Adverse Reaction (Unknown, Verified 02/07/18 12:41) elev bld sugar Review of Systems ROS unobtainable: Due to mental status - has some dementia though at times communicative Gastrointestinal: PRESENT: abdominal pain Physical Exam Vital Signs: Temp Pulse Resp BP Pulse Ox 97.6 F 58 L 20 152/73 H 98 02/07/18 12:17 02/07/18 12:17 02/07/18 12:17 02/07/18 12:17 02/07/18 12:17 General appearance: PRESENT: no acute distress Head exam: PRESENT: atraumatic Eye exam: PRESENT: conjunctiva pink Mouth exam: PRESENT: moist Neck exam: PRESENT: full ROM Respiratory exam: PRESENT: clear to auscultation tomas Cardiovascular exam: PRESENT: RRR Pulses: PRESENT: normal radial pulses Vascular exam: PRESENT: normal capillary refill GI/Abdominal exam: PRESENT: soft, tenderness - no definite mass nor tenderness left inguinal area Rectal exam: PRESENT: deferred Extremities exam: PRESENT: full ROM Musculoskeletal exam: PRESENT: ambulatory Neurological exam: PRESENT: alert, oriented to person Psychiatric exam: PRESENT: appropriate affect Skin exam: PRESENT: normal color, warm Results Impressions: Limited or Localized CT 02/07/18 12:47 IMPRESSION: INCARCERATED LEFT INGUINAL HERNIA RESULTING IN SMALL BOWEL OBSTRUCTION. SURGICAL CONSULTATION RECOMMENDED. ADDITIONAL CHRONIC CHANGES ABOVE. Assessment & Plan - Diagnosis (1) COPD (chronic obstructive pulmonary disease) Qualifiers: COPD type: unspecified COPD Qualified Code(s): J44.9 - Chronic obstructive pulmonary disease, unspecified Is this a current diagnosis for this admission?: Yes (2) Inguinal hernia Qualifiers: Obstruction and gangrene presence: with obstruction but without gangrene Laterality: unilateral Recurrence: not specified as recurrent Qualified Code (s): K40.30 - Unilateral inguinal hernia, with obstruction, without gangrene, not specified as recurrent Is this a current diagnosis for this admission?: Yes (3) Small bowel obstruction Is this a current diagnosis for this admission?: Yes (4) Diabetes mellitus Is this a current diagnosis for this admission?: Yes - Time Time Spent: 30 to 50 Minutes - Inpatient Certification Based on my medical assessment, after consideration of the patient's comorbidities, presenting symptoms, or acuity I expect that the services needed warrant INPATIENT care.: Yes I certify that my determination is in accordance with my understanding of Medicare's requirements for reasonable and necessary INPATIENT services [42 CFR 412.3e].: Yes Medical Necessity: Need For IV Fluids, Need for IV Antibiotics, Need for Surgery - Plan Summary Plan Summary: Keep NPO Prophylactic antibiotics To OR for repair of incarcerated left inguinal hernia with mesh
[2018-02-07] MEDS ORDERED: ONDANSETRON HCL INJ/PF 4 MG/2 ML SDV ONE (16:13)
[2018-02-07] MEDS ORDERED: PROPOFOL INJ 200 MG/20 ML VIAL IV ONE (16:13)
[2018-02-07] MEDS ORDERED: MIDAZOLAM 2 MG/2 ML INJ ONE (16:13)
[2018-02-07] MEDS ORDERED: FENTANYL CITRATE INJ/PF 100 MCG/2 ML AMPUL ONE ×2 (16:13→18:26)
[2018-02-07] MEDS ORDERED: HYDROMORPHONE HCL INJ/PF 2 MG/ML AMPULE ONE ×2 (16:14→18:42)
--- NOTE | 2018-02-07 16:15 | RADIOLOGY REPORT (SQ) ---
EXAM DESCRIPTION: CHEST SINGLE VIEW COMPLETED DATE/TIME: 02/07/2018 4:05 pm REASON FOR STUDY: chest pain COMPARISON: 04/06/2017 EXAM PARAMETERS: NUMBER OF VIEWS: One view. TECHNIQUE: Single frontal radiographic view of the chest acquired. RADIATION DOSE: NA LIMITATIONS: None. FINDINGS: LUNGS AND PLEURA: No opacities, masses or pneumothorax. No pleural effusion. MEDIASTINUM AND HILAR STRUCTURES: No masses. Contour normal. HEART AND VASCULAR STRUCTURES: Heart normal in size. Normal vasculature. BONES: No acute findings. HARDWARE: None in the chest. OTHER: No other significant finding. IMPRESSION: NO ACUTE RADIOGRAPHIC FINDING IN THE CHEST. TECHNICAL DOCUMENTATION: JOB ID: [id number] [email or web address]- All Rights Reserved Reading location - IP/workstation name: [email or web address]
[2018-02-07] MEDS ORDERED: ACETAMINOPHEN 325 MG TABLET PO PRN (16:27)
[2018-02-07] MEDS ORDERED: DEXTROSE 50%-WATER 25 GM/50 ML DISP.SYRIN IV PRN ×2 (16:28)
[2018-02-07] MEDS ORDERED: GLUCAGON,HUMAN RECOMB 1 MG INJ IM PRN (16:28)
[2018-02-07] MEDS ORDERED: DEXTROSE 40% GEL 15 GM TUBE PO PRN ×2 (16:28)
[2018-02-07] MEDS ORDERED: INSULIN LISPRO 100 UNIT/ML 3 ML VIAL SUBCUT PRN (16:28)
[2018-02-07] MEDS ORDERED: MEPERIDINE HCL/PF INJ 25 MG/1 ML DISP.SYRIN IV PRN (17:13)
[2018-02-07] MEDS ORDERED: PROMETHAZINE HCL INJ 25 MG/1 ML VIAL IV PRN (17:13)
[2018-02-07] MEDS ORDERED: FENTANYL CITRATE INJ/PF 100 MCG/2 ML AMPUL IV PRN ×3 (17:13)
[2018-02-07] MEDS ORDERED: DIPHENHYDRAMINE HCL 50 MG/ML VIAL IV PRN (17:13)
[2018-02-07] MEDS: BUPIVACAINE HCL 0.5%-EPI 1:200000 INJ/PF 30 ML VIAL ONE ×2 (17:47→18:01)
[2018-02-07] MEDS ORDERED: CEFAZOLIN 2 GM/D5W RTU 2 GM/50 ML RTUPB IV SCH (18:00)
[2018-02-07] MEDS ORDERED: ALBUTEROL SULFATE 0.083% NEB 2.5 MG/3 ML AMPUL NEB ONE (18:26)
[2018-02-07] MEDS ORDERED: HYDROMORPHONE HCL INJ/PF 2 MG/ML AMPULE IV PRN (18:50)
[2018-02-07] MEDS ORDERED: DEXTROSE 5%-1/2 NORMAL SALINE 1,000 ML IV PRN (18:51)
[2018-02-07] MEDS ORDERED: LORAZEPAM INJ 2 MG/1 ML VIAL IV PRN (18:51)
[2018-02-07] MEDS ORDERED: OXYCODONE-ACETAMINOPHEN 5-325 MG TABLET PO PRN (18:51)
[2018-02-07] MEDS ORDERED: ALBUTEROL SULFATE 0.083% NEB 2.5 MG/3 ML AMPUL NEB PRN (18:52)
--- NOTE | 2018-02-07 20:20 | EKG REPORT ---
SEVERITY:- ABNORMAL ECG - SINUS RHYTHM RIGHT BUNDLE BRANCH BLOCK : Confirmed by: Rosemarie Alfaro 07-Feb-2018 20:19:32
[2018-02-07] MEDS: DEXTROSE 5%-NORMAL SALINE 1,000 ML IV PRN (20:29)
[2018-02-07] MEDS ORDERED: (PENDING PHARMACY ID) (Sertraline Hcl [Sertraline Hcl] 25 MG) PO SCH ×2 (22:00)
--- NOTE | 2018-02-07 23:09 | OPERATIVE REPORT E ---
Operative Report NAME: DELLA ZHAO : 1940 AGE: 77Y DATE OF SURGERY: 02/07/2018 ROOM: 403 PREOPERATIVE DIAGNOSIS: INCARCERATED LEFT INGUINAL HERNIA. POSTOPERATIVE DIAGNOSIS: REDUCED INCARCERATED LEFT INGUINAL HERNIA. OPERATION: Repair of left inguinal hernia with mesh. SURGEON: BLAYNE GALINDO M.D. ANESTHESIA: General. INDICATION: This is a 77-year-old male who is known to have Alzheimer's. Patient complained of pains in the left groin this morning and went to the ED, where a CAT scan of the abdomen showed incarcerated left inguinal hernia with small bowel obstruction. Hernia appears to have been reduced by the ED physician in the ER. However, since patient has Alzheimer's, I think it is best to repair the hernia now than wait for it to recur. PROCEDURE: After adequate general anesthesia, patient was placed in supine position, and abdomen prepped and draped in the usual sterile fashion. An appropriate timeout was then called. A left inguinal incision was made and the Arsh's divided, and so was the external oblique aponeurosis. Internal ring was opened. Cord structures were then lifted up. No evidence of indirect inguinal hernia noted. However, patient appeared to have a large direct inguinal hernia. The ilioinguinal nerve identified and appeared to be in the way of the repair, and this was then divided. Next, a large mesh plug was then placed to the shelving portion of the inguinal ligament and to the conjoined tendon. Next, mesh part laid on top of the mesh plug and sutured to the shelving portion of the inguinal ligament and the conjoined tendon, and wrapped around the cord. Suture used was 2-0 Vicryl. The operative site was then irrigated and hemostasis further obtained with cautery. Next, the external oblique aponeurosis was then closed over the cord structures with interrupted sutures using 2-0 Vicryl. Arsh's was then closed in interrupted fashion with 3-0 Vicryl undyed. The skin was then closed with running subcuticular closure using 4-0 Monocryl. Sterile dressings placed over the operating site. About 10 mL of 0.5% Marcaine were injected at the operative site. Sterile dressings placed over the incision site. Needle, instrument and sponge count were all correct, and estimated blood loss about 10 mL. Patient was brought to the recovery room in satisfactory condition. DICTATING PHYSICIAN: BLAYNE GALINDO M.D. [id number] PHY#: [id number] ID: [id number] JOB#: [id number] ACCT: [id number] cc:BLAYNE GALINDO M.D. >
[2018-02-07] MEDS: LORAZEPAM 0.5 MG TABLET PO SCH (23:15)
[2018-02-07] MEDS: CEFAZOLIN 1 GM/D5W RTU 1 GM/50 ML RTUPB IV SCH (23:15)
--- NOTE | 2018-02-07 23:49 | CONSULTATION REPORT E ---
Consultation Report NAME: DELLA ZHAO : 1940 AGE: 77Y DATE: 02/07/2018 403 A TO: FAUSTO STEELE NP FROM: NELDA GRIMES M.D. Requesting Physician CODE STATUS: FULL CODE. PRIMARY CARE PROVIDER: Dr. Fausto Caro. CHIEF COMPLAINT: Left groin pain. HISTORY OF PRESENT ILLNESS: The patient is a 77-year-old male with a past medical history of diabetes mellitus type 2 and significant dementia. The patient presented to the emergency department with a chief complaint of left groin pain. The patient who is quite a poor historian, so most history had to be obtained from ER records as well as the family. The patient was brought into the emergency department. The family stated the patient had been complaining of left groin pain; however, he could not articulate this complaint upon arrival. The patient did have a CT scan which showed an incarcerated left inguinal hernia with small bowel obstruction. The ER physician, Dr. Mtz, tried to reduce it in the emergency department which the hernia had appeared to be reduced; however, the patient was unable to communicate anything significant such as pain. The patient was seen and evaluated by Dr. Fernandez and felt the patient did need operative intervention and the hospitalist had been consulted to aid in the medical management. The patient is unable to provide any history but there has been no reported episodes of vomiting nor diarrhea. The patient appears to have been afebrile. His blood pressures have been in a decent range and the patient is quite pleasant and is headed to the OR. PAST MEDICAL HISTORY: Remarkable for: 1. Hypertension. 2. Asthma. 3. Chronic obstructive pulmonary disease nor oxygen dependent. 4. Sleep apnea with a CPAP setting of 3.5. 5. 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 6. Dementia. PAST SURGICAL HISTORY: 1. Complete dental extraction. 2. Finger surgery. ALLERGIES: Include PREDNISONE. HOME MEDICATIONS: 1. Tylenol 650 mg p.o. q.4 hours p.r.n. 2. ProAir HFA 2 puffs inhalation q.12 hours p.r.n. 3. Multivitamin 1 tablet p.o. daily. 4. Hydrochlorothiazide 12.5 mg p.o. daily. 5. Lantus 40 units subQ q. hour of sleep. 6. Humalog 5 units after each meal. 7. Ativan 0.5 mg p.o. q.12 hours. 8. Primidone 50 mg p.o. b.i.d. 9. Exelon patch 4.6 mg 1 patch daily. 10. Sertraline 25 mg p.o. q.12 hours. SOCIAL HISTORY: The patient currently resides at home. His surrogate decision maker is his daughter, Shereen, who can be reached at [phone]. The patient has no history of alcohol use. The patient does have a remote history of tobacco use and a history of illicit drug use. FAMILY MEDICAL HISTORY: The patient's mother is . She was in her 90s and apparently of old age. The patient's father is of uncertain causes. The patient does have a daughter with diabetes and hyperlipidemia. The patient has 2 siblings that of cancer of uncertain etiology. REVIEW OF SYSTEMS: A full review of systems cannot be appreciated given the patient's dementia. PHYSICAL EXAMINATION: GENERAL: On examination, the patient is a well-developed, well-nourished, quite pleasant 77-year-old male who is awake, alert. He is oriented to person and place but not fully oriented to time nor situation. He does not appear to be in any acute distress. VITAL SIGNS: As follows: Temperature 97.6, pulse 58, respirations 20, blood pressure 152/73, oxygen saturation is 98% on room air. SKIN: Warm and dry. No rash. He is not diaphoretic. HEENT: Pupils equal, round, reactive to light and accommodation. Conjunctivae are pink. Sclerae are not icterus. There are no mouth lesions. Tongue is midline. NECK: Supple. No JVD. No palpable lymphadenopathy or thyromegaly. CARDIOVASCULAR: Heart is regular. There is no murmur or rub. CHEST: Clear, symmetrical, unlabored. ABDOMEN: Diffusely tender. Does appear somewhat distended. BACK: No CVA tenderness or sacral edema. EXTREMITIES: No clubbing, cyanosis, edema, or peripheral signs of embolization. Pedal pulses 1+ noted bilaterally. PSYCHIATRIC: The patient is quite pleasant. DIAGNOSTICS: Lab values are as follow: Hematology obtained on 02/07/2018: WBCs are 6.3, hemoglobin is 15.5, hematocrit is 24.4, platelet count is 239,000. Coagulation obtained on 02/07/2018: PT is 12.7, INR is 0.91. Chemistry obtained on 02/07/2018: Sodium is 152, potassium 4.2, chloride is *------*, BUN 12, creatinine is 0.8, glucose 108, calcium is 9.8, bilirubin 0.9. AST 38, ALT is 43, alk phos 76, total protein 7.6, albumin 4.4. IMPRESSION AND PLAN: 1. INCARCERATED HERNIA WITH SMALL BOWEL OBSTRUCTION. The patient is waiting to go to the OR at this time. Will followup patient postoperatively and management is per primary team. 2. HYPERTENSION. Blood pressures are in an acceptable range. Will hold the patient's diuretic at this time. 3. DIABETES MELLITUS TYPE 2. Will hold the patient's *------* insulin. Only cover with sliding scale coverage for now. 4. DEMENTIA. Will resume the patient's home medications. 5. CHRONIC OBSTRUCTIVE PULMONARY DISEASE. The patient is not requiring any O2. 6. OBSTRUCTIVE SLEEP APNEA. Will resume the patient on CPAP. DISPOSITION: The patient is a FULL CODE. Pending patient's symptomatology and diagnostic findings, will reevaluate as needed. Time spent on this consult including assessment, plan, physical examination, patient education and family meeting is 40 minutes. DICTATING PHYSICIAN: FAUSTO STEELE NP [id number] PHY#: [id number] ID: [id number] JOB#: [id number] ACCT: [id number] cc:FAUSTO STEELE NP >
[2018-02-08] MEDS ORDERED: SERTRALINE HCL 50 MG TABLET PO ONE (01:15)
[2018-02-08 04:51] LABS: ABSOLUTE EOSINOPHILS # (AUTO) 0.1 10^3/uL (0.0-0.6); ABSOLUTE MONOCYTES (AUTO) 0.6 10^3/uL (0.1-1.4); ABSOLUTE NEUT (AUTO) 4.5 10^3/uL (1.7-8.2); BASOPHILS % (AUTO) 0.7 % (0-2); EOSINOPHILS % (AUTO) 1.4 % (0-6); HEMATOCRIT 37.9 % (37.9-51.0); LYMPHOCYTES % (AUTO) 16.4 % (13-45); MEAN CORPUSCULAR HEMOGLOBIN 29.7 pg (27.0-33.4); MEAN CORPUSCULAR HGB CONC 35.1 g/dL (32.0-36.0); MEAN CORPUSCULAR VOLUME 84 fl (80-97); PLATELET COUNT 176 10^3/uL (150-450); RED BLOOD COUNT 4.49 10^6/uL (4.35-5.55); RED CELL DISTRIBUTION WIDTH 14.4 % (11.5-14.0); SEGMENTED NEUTROPHILS % (AUTO) 72.5 % (42-78); TOTAL CELLS COUNTED % (AUTO) 100 %; WHITE BLOOD COUNT 6.2 10^3/uL (4.0-10.5)
[2018-02-08 05:02] LABS: HEMOGLOBIN 13.3 g/dL (13.5-17.0)
[2018-02-08 05:08] LABS: ANION GAP 8 (5-19); BLOOD UREA NITROGEN 12 mg/dL (7-20); CALCIUM 8.8 mg/dL (8.4-10.2); CARBON DIOXIDE 30 mmol/L (22-30); CHLORIDE 94 mmol/L (98-107); GLUCOSE 252 mg/dL (75-110); POTASSIUM 4.5 mmol/L (3.6-5.0); SODIUM 132.1 mmol/L (137-145)
[2018-02-08] MEDS: DEXTROSE 5%-NORMAL SALINE 1,000 ML IV PRN (06:49)
[2018-02-08] MEDS ORDERED: PRIMIDONE 50 MG TABLET PO SCH (08:00)
[2018-02-08] MEDS: CEFAZOLIN 1 GM/D5W RTU 1 GM/50 ML RTUPB IV SCH (09:27)
[2018-02-08] MEDS: LORAZEPAM 0.5 MG TABLET PO SCH (09:29)
[2018-02-08] MEDS ORDERED: LEVOMEFOLATE CALCIUM PO SCH (10:00)
[2018-02-08] MEDS ORDERED: B6 PO SCH (10:00)
[2018-02-08] MEDS ORDERED: RIVASTIGMINE 4.6 MG/24 HR PATCH.TD24 TD SCH (10:00)
[2018-02-08] MEDS ORDERED: B12 PO SCH (10:00)
[2018-02-08] MEDS ORDERED: SERTRALINE HCL 50 MG TABLET PO SCH (10:00)
--- NOTE | 2018-02-08 13:46 | PDOC PROGRESS REPORT ---
Subjective Progress Note for:: 02/08/18 Subjective:: Hospitalist service was consulted on 02/07 for medical management. S/p left inguinal hernia repair with mesh placement POD #1. Tolerated procedure well. Very little pain. Doing rather well overall with no specific complaints. Tolerating PO, urinating without issue. Wants to be discharged to home. Reason For Visit: INCARCERATED LEFT INGUINAL HERNIA WITH SMALL BOWEL Physical Exam Vital Signs: Temp Pulse Resp BP Pulse Ox 98.2 F 73 16 164/69 H 98 02/08/18 12:23 02/08/18 12:23 02/08/18 12:23 02/08/18 12:23 02/08/18 12:23 Intake & Output 02/07/18 02/08/18 02/09/18 06:59 06:59 06:59 Intake Total 545 1242 Output Total 920 Balance -375 1242 Weight 75.5 kg General appearance: PRESENT: no acute distress, cooperative, well-developed, well-nourished Mouth exam: PRESENT: moist Respiratory exam: ABSENT: unlabored Cardiovascular exam: PRESENT: +S1, +S2. ABSENT: systolic murmur GI/Abdominal exam: PRESENT: soft, tenderness, other - Surgical scar c/d/i Neurological exam: PRESENT: alert, awake, CN II-XII grossly intact, other - Dementia noted Psychiatric exam: PRESENT: appropriate affect Results Laboratory Results: 02/08/18 04:13 02/08/18 04:13 02/08/18 02/08/18 04:13 04:13 WBC 6.2 RBC 4.49 Hgb 13.3 L D Hct 37.9 MCV 84 MCH 29.7 MCHC 35.1 RDW 14.4 H Plt Count 176 Seg Neutrophils % 72.5 Lymphocytes % 16.4 Monocytes % 9.0 Eosinophils % 1.4 Basophils % 0.7 Absolute Neutrophils 4.5 Absolute Lymphocytes 1.0 Absolute Monocytes 0.6 Absolute Eosinophils 0.1 Absolute Basophils 0.0 Sodium 132.1 L Potassium 4.5 Chloride 94 L Carbon Dioxide 30 Anion Gap 8 BUN 12 Creatinine 0.89 Est GFR ( Amer) > 60 Est GFR (Non-Af Amer) > 60 Glucose 252 H Calcium 8.8 Impressions: Chest X-Ray 02/07/18 00:00 IMPRESSION: NO ACUTE RADIOGRAPHIC FINDING IN THE CHEST. Limited or Localized CT 02/07/18 12:47 IMPRESSION: INCARCERATED LEFT INGUINAL HERNIA RESULTING IN SMALL BOWEL OBSTRUCTION. SURGICAL CONSULTATION RECOMMENDED. ADDITIONAL CHRONIC CHANGES ABOVE. Assessment & Plan - Diagnosis (1) Inguinal hernia Qualifiers: Obstruction and gangrene presence: with obstruction but without gangrene Laterality: unilateral Recurrence: not specified as recurrent Qualified Code (s): K40.30 - Unilateral inguinal hernia, with obstruction, without gangrene, not specified as recurrent Is this a current diagnosis for this admission?: Yes Plan: S/p repair by Gen surgery on 02/07. Tolerated procedure well - Little/no pain, current OTC pain regimen - PO appetite good - Stable for discharge from hospitalist standpoint - Will need post surgery follow up, per surg recommendations (2) COPD (chronic obstructive pulmonary disease) Qualifiers: COPD type: unspecified COPD Qualified Code(s): J44.9 - Chronic obstructive pulmonary disease, unspecified Is this a current diagnosis for this admission?: Yes Plan: Stable (3) Diabetes mellitus Is this a current diagnosis for this admission?: Yes Plan: Stable - Time Time Spent with patient: Less than 15 minutes Anticipated discharge: Home, Home with Homehealth Within: within 24 hours - Today
[2018-02-08 19:53] VITALS: BP 140/71
== END 2018-02-08 13:05 | disposition home or self-care (01) ==
LOC: ER 12:08 → INTOOBSV 15:34 → EH 15:34 → 4N 19:20
PROVIDERS: ATTEND Surgery
PROC: 0YU60JZ Supplement Left Inguinal Region with Synthetic Substitute, Open Approach (ICD-10-PCS; principal; 2018-02-07 17:00)
DX: K40.30 Unilateral inguinal hernia, with obstruction, without gangrene, not specified as recurrent (principal); G30.9 Alzheimer's disease, unspecified; F02.80 Dementia in other diseases classified elsewhere, unspecified severity, without behavioral disturbance, psychotic disturbance, mood disturbance, and anxiety; I10 Essential (primary) hypertension; J44.9 Chronic obstructive pulmonary disease, unspecified; I45.10 Unspecified right bundle-branch block; G47.33 Obstructive sleep apnea (adult) (pediatric); E11.9 Type 2 diabetes mellitus without complications; Z79.4 Long term (current) use of insulin; Z87.891 Personal history of nicotine dependence
CPT/HCPCS: 93005; 99285; 36415 ×2; 82962 ×2; 85025 ×2; 85610; 85730; 80048; 80053; 81001; 71045; 76380; 93010; 94660 ×2; 49507; G0378 ×3; C1781; J2250; J3490 ×3; J0690 ×3; A9270 ×5; J3010; J1170; J0330; J2405; J7030; J2704; 830

== ENCOUNTER → 2018-04-07 | Outpatient (CLI) | payer MEDICARE, OTHER | LOC: OD 16:06 | PROVIDERS: ATTEND Plastic Surgery | DX: D23.62 Other benign neoplasm of skin of left upper limb, including shoulder (principal) | CPT/HCPCS: 88305 ==

== ENCOUNTER 2018-06-02 07:07 | Day surgery (SDC) | payer MEDICARE, OTHER ==
[2018-05-21 10:29] LABS: HEMATOCRIT 43.7 % (37.9-51.0); HEMOGLOBIN 15.6 g/dL (13.5-17.0); MEAN CORPUSCULAR HEMOGLOBIN 29.7 pg (27.0-33.4); MEAN CORPUSCULAR HGB CONC 35.7 g/dL (32.0-36.0); MEAN CORPUSCULAR VOLUME 83 fl (80-97); PLATELET COUNT 237 10^3/uL (150-450); RED BLOOD COUNT 5.25 10^6/uL (4.35-5.55); RED CELL DISTRIBUTION WIDTH 14.9 % (11.5-14.0); WHITE BLOOD COUNT 5.8 10^3/uL (4.0-10.5)
[2018-05-21 10:37] LABS: INTERNATIONAL RATION (INR) 0.91; PROTHROMBIN TIME 12.7 SEC (11.4-15.4)
[2018-05-21 10:38] LABS: PARTIAL THROMBOPLASTIN TIME 27.2 SEC (23.5-35.8)
[2018-05-21 11:19] LABS: ANION GAP 13 (5-19); BLOOD UREA NITROGEN 13 mg/dL (7-20); CALCIUM 9.8 mg/dL (8.4-10.2); CARBON DIOXIDE 31 mmol/L (22-30); CHLORIDE 96 mmol/L (98-107); GLUCOSE 61 mg/dL (75-110); POTASSIUM 4.6 mmol/L (3.6-5.0); SODIUM 140.2 mmol/L (137-145)
--- NOTE | 2018-05-21 12:30 | EKG REPORT ---
SEVERITY:- ABNORMAL ECG - SINUS RHYTHM RIGHT BUNDLE BRANCH BLOCK NONSPECIFIC ST-T CHANGES- INFERIOR LEADS : Confirmed by: Bebeto Resendez MD 21-May-2018 12:29:32
[~2018-06-02 07:07] MED LIST changes: +CEFAZOLIN 1 GM/D5W RTU 1 GM/50 ML RTUPB IV PRN; +LACTATED RINGERS 1000 ML IV PRN; +LIDOCAINE 0.5% INJ-PF (5 MG/ML) 50 ML SDV SUBCUT PRN; -ROCURONIUM BROMIDE INJ 50 MG/5 ML VIAL IV ONE; -SUCCINYLCHOLINE CHLORIDE INJ 200 MG/10 ML VIAL ONE
[2018-06-02] MEDS ORDERED: SODIUM BICARBONATE 8.4% INJ 50 MEQ/50 ML DISP.SYRIN ONE (07:11)
[2018-06-02] MEDS ORDERED: LIDOCAINE 1% INJ-PF (10 MG/ML) 30 ML SDV ONE (07:11)
[2018-06-02 09:03] LABS: POTASSIUM 4.6 mmol/L (3.6-5.0)
[2018-06-02] MEDS ORDERED: ALBUTEROL SULFATE 0.083% NEB 2.5 MG/3 ML AMPUL NEB ONE (10:09)
[2018-06-02] MEDS ORDERED: FENTANYL CITRATE INJ/PF 100 MCG/2 ML AMPUL ONE ×2 (10:14)
[2018-06-02] MEDS ORDERED: PROPOFOL INJ 200 MG/20 ML VIAL IV ONE (10:15)
[2018-06-02] MEDS ORDERED: MIDAZOLAM 2 MG/2 ML INJ ONE (10:15)
[2018-06-02] MEDS ORDERED: LIDOCAINE 1%/EPINEPHRINE INJ 20 ML VIAL ONE (10:49)
--- NOTE | 2018-06-02 12:33 | Operative Report ---
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 Cannot rule out invasive carcinoma. 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 Natarajan. OPERATION: Excision of biopsy-proven keratoacanthoma of the left hand with frozen section margin control and reconstruction with a rotation flap SURGEON: ANGELICA BROWNING ANESTHESIA: LMAC TISSUE REMOVED OR ALTERED: Keratoacanthoma the left hand COMPLICATIONS: None ESTIMATED BLOOD LOSS: Minimal PROCEDURE: Patient seen and was marked prior to being brought into the operating room. Patient was brought into the operating room and placed on the operating room table in a supine position. Patient was then prepped with a Betadine scrub and Betadine solution and draped in a sterile and aseptic manner. The area was then marked. 12 O'clock was marked towards the elbow 3 O'clock was marked towards the the ulnar side 6:00 was marked towards the the wrist 9:00 was marked towards the radial side The area was then anesthetized with 1% lidocaine with epinephrine and bicarbonate for its anesthetic and hemostatic effects. The area was then excised and marked at 12:00. The specimen was sent for frozen section. The results came back that the deep and lateral margins were free. We had considered a primary closure but this would go against the natural relaxed skin tension lines. A primary closure would be too tight and would have increased chance of dehiscence. This will leave more of a scar so we decided to use a rotation flap reconstruction which would camouflage the scar better and take tension off of the closure so that would be less chances of complications. The flap that we selected was a rotation flap which would allow us to turn the direction of the closure away from the MCP joint. This would prevent scarring across the joint so that there would not be any undue amount of tightness in the postop.. Again by creating the rotation flap we were able to use some of the skin from the webspace but we did not compromise the web space nor the flexion of the MCP joints of the index finger or middle finger. Then we went ahead and outlined the flap and anesthetized it. We then incised the flap and developed a flap maintaining the subdermal plexus. Then we undermined 360 to allow for plate like scarring and minimize trap door deformity. Throughout the case hemostasis was achieved with the bipolar. We then sutured the flap into its new position using 3-0 Prolene Skin was closed with a interrupted simple and vertical mattress sutures stitch using 3-0 Prolene with knots being tied on the outside. We attempted to use sutures in the deep dermis but unfortunately they would not hold because the skin was so thin and friable. We then applied tincture benzoin and Steri-Strips followed by a light pressure dressing. A 3 inch Ortho-Glass splint was applied in order to protect the patient from flexing the fingers and the wrist and disrupting the reconstruction. Patient was then reversed from anesthesia and taken to the [facility] for recovery. The patient tolerated well. There were no complications. Lesion size was approximately 1.8 x 2.1 cm please see pathology for actual size. Portions of this note may be dictated using [email or web address] voice recognition software. Occasional variations and spelling and vocabulary could be possible and are unintentional. Additionally, there is a chance that some errors may not be caught or corrected. Please notify the author of any discrepancies noted or if any statements are unclear. Subjective: No complaints Objective: Vital signs stable afebrile No bleeding Dressing intact Assessment and plan: Doing well. Elevate the operative site. Resume medications. Take antibiotics for 1 day Follow-up Full instructions were given to the patient and family and they understand Portions of this note may be dictated using [email or web address] voice recognition software. Occasional variations and spelling and vocabulary could be possible and are unintentional. Additionally, there is a chance that some errors may not be caught or corrected. Please notify the offer of any discrepancies noted or if any statements are unclear.
--- NOTE | 2018-06-02 12:35 | Discharge Summary ---
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 Leave the steri-strip tapes on for 5 days, then removal. Then cleaning wound with peroxide and apply Neosporin/bacitracin 3 times per day. Antibiotics for 1 day, then discontinue. Elevate operative area to decrease swelling. Do not strain, or lift heavy objects. Call for excessive bleeding, increased temperature of 101, uncontrolled pain, or excessive nausea or vomiting. You may reach Dr. Cook through his office at [phone]. In the event of an emergency after hours, then contact Dr. Cook through [facility]. Return to the office for a postop check on . The time will be scheduled by the nursing staff of [facility] prior to discharge. Please give the patient a copy of their labs and EKG so they can bring this to their PMD. Thank you Portions of this note may be dictated using [employer] voice recognition software. Occasional variations and spelling and vocabulary could be possible and are unintentional. Additionally, there is a chance that some errors may not be caught or corrected. Please notify the offer of any discrepancies noted or if any statements are unclear. Referrals: KARO CAVANAUGH MD [Primary Care Provider] - Discharge Diet: As Tolerated Report the Following to Your Physician Immediately: Unusual Bleeding - Keep hand elevated. Monitor capillary refill in the digits. Do not flex the wrist or the fingers.
[2018-06-02] MEDS ORDERED: MEPERIDINE HCL/PF INJ 25 MG/1 ML DISP.SYRIN IV PRN (13:48)
[2018-06-02] MEDS ORDERED: ONDANSETRON HCL INJ/PF 4 MG/2 ML SDV IV PRN (13:48)
[2018-06-02] MEDS ORDERED: FENTANYL CITRATE INJ/PF 100 MCG/2 ML AMPUL IV PRN ×3 (13:48)
[2018-06-02] MEDS ORDERED: DIPHENHYDRAMINE HCL 50 MG/ML VIAL IV PRN (13:48)
[2018-06-02 14:32] VITALS: BP 136/66
== END 2018-06-02 14:20 | disposition home or self-care (01) ==
LOC: OROUT 07:07
PROVIDERS: ATTEND Plastic Surgery
DX: C44.699 Other specified malignant neoplasm of skin of left upper limb, including shoulder (principal); L85.8 Other specified epidermal thickening; L57.0 Actinic keratosis; L81.4 Other melanin hyperpigmentation; I10 Essential (primary) hypertension; J44.9 Chronic obstructive pulmonary disease, unspecified; G47.33 Obstructive sleep apnea (adult) (pediatric); E11.9 Type 2 diabetes mellitus without complications; F03.90 Unspecified dementia, unspecified severity, without behavioral disturbance, psychotic disturbance, mood disturbance, and anxiety; Z88.8 Allergy status to other drugs, medicaments and biological substances; Z79.899 Other long term (current) drug therapy; Z79.4 Long term (current) use of insulin; Z79.84 Long term (current) use of oral hypoglycemic drugs; Z85.828 Personal history of other malignant neoplasm of skin; Z87.891 Personal history of nicotine dependence
CPT/HCPCS: 93005; 36415 ×2; 82947; 84132; 85027; 85610; 85730; 80048; 88305 ×2; 88331 ×2; 93010; 94640; 14040; J2250; J0690; J3010; J3490 ×2; J2704; A9270; 400

== ENCOUNTER 2020-03-29 20:45 | Emergency (ER) | payer MEDICARE, OTHER ==
[2020-03-29 21:29] LABS: ABSOLUTE EOSINOPHILS # (AUTO) 0.1 10^3/uL (0.0-0.6); ABSOLUTE LYMPHOCYTES (AUTO) 0.9 10^3/uL (0.5-4.7); ABSOLUTE MONOCYTES (AUTO) 0.5 10^3/uL (0.1-1.4); ABSOLUTE NEUT (AUTO) 2.8 10^3/uL (1.7-8.2); EOSINOPHILS % (AUTO) 2.9 % (0-6); HEMOGLOBIN 12.5 g/dL (13.5-17.0); LYMPHOCYTES % (AUTO) 19.8 % (13-45); MEAN CORPUSCULAR HEMOGLOBIN 28.2 pg (27.0-33.4); MEAN CORPUSCULAR HGB CONC 34.8 g/dL (32.0-36.0); MEAN CORPUSCULAR VOLUME 81 fl (80-97); MONOCYTES % (AUTO) 12.1 % (3-13); PLATELET COUNT 231 10^3/uL (150-450); RED BLOOD COUNT 4.44 10^6/uL (4.35-5.55); RED CELL DISTRIBUTION WIDTH 13.9 % (11.5-14.0); SEGMENTED NEUTROPHILS % (AUTO) 64.2 % (42-78); TOTAL CELLS COUNTED % (AUTO) 100 %; WHITE BLOOD COUNT 4.4 10^3/uL (4.0-10.5)
[2020-03-29 21:53] LABS: ALBUMIN 3.4 g/dL (3.5-5.0); ALKALINE PHOSPHATASE 86 U/L (38-126); ANION GAP 6 (5-19); ASPARTATE AMINO TRANSFERASE 24 U/L (17-59); BILIRUBIN,TOTAL 0.4 mg/dL (0.2-1.3); BLOOD UREA NITROGEN 26 mg/dL (7-20); CALCIUM 8.5 mg/dL (8.4-10.2); CARBON DIOXIDE 31 mmol/L (22-30); CHLORIDE 93 mmol/L (98-107); GLUCOSE 242 mg/dL (75-110); POTASSIUM 3.6 mmol/L (3.6-5.0); TOTAL PROTEIN 6.3 g/dL (6.3-8.2)
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
--- NOTE | 2020-03-29 23:11 | RADIOLOGY REPORT (SQ) ---
EXAM DESCRIPTION: CT CERVICAL SPINE WITHOUT IV CONTRAST COMPLETED DATE/TME: 03/29/2020 22:36 CLINICAL HISTORY: 79 years, Male, eval for neck trauma COMPARISON: None. TECHNIQUE: 282 Images stored on PACS. All CT scanners at this facility use dose modulation, iterative reconstruction, and/or weight based dosing when appropriate to reduce radiation dose to as low as reasonably achievable (ALARA). [facility]: Dose Right [facility]: CareDose [facility]: Dose Right [facility]: Teradose 4D [facility]: [employer] LIMITATIONS: None. FINDINGS: Evaluation of spinal canal contents limited due to CT technique. However, vertebral body height and alignment is preserved. Negative for fracture/compression deformity or subluxation. Chronic changes at C1/C2. Degenerative changes throughout the cervical spine with disc space narrowing, osteophytic spurring, uncovertebral joint hypertrophy, and facet arthropathy. Surrounding soft tissues are grossly unremarkable IMPRESSION: No CT evidence for acute C-spine abnormality TECHNICAL DOCUMENTATION: Quality ID # [id number]: Final reports with documentation of one or more dose reduction techniques (e.g., Automated exposure control, adjustment of the mA and/or kV according to patient size, use of iterative reconstruction technique) copyright 2011 [employer]- All Rights Reserved
--- NOTE | 2020-03-29 23:16 | RADIOLOGY REPORT (SQ) ---
CLINICAL HISTORY: eval for head trauma COMPARISON: None. TECHNIQUE: CT HEAD WITHOUT IV CONTRAST on 03/29/2020 10:35 PM CDT This exam was performed according to our departmental dose-optimization program, which includes automated exposure control, adjustment of the mA and/or kV according to patient size and/or use of iterative reconstruction technique. FINDINGS: There is no acute hemorrhage, mass effect or midline shift. Mackenzie-white differentiation is preserved. There is no hydrocephalus. There is no significant volume loss for age. There are mild patchy hypodensities within the periventricular and subcortical white matter, consistent with microangiopathic ischemic changes. The calvarium is intact. Orbits and globes are unremarkable. The paranasal sinuses are clear. Mastoid air cells are clear. IMPRESSION: No acute intracranial findings.
[2020-03-30 00:35] VITALS: BP 117/62
== END 2020-03-30 00:55 | disposition home or self-care (01) ==
LOC: ER 20:45
DX: S09.90XA Unspecified injury of head, initial encounter (principal); F03.90 Unspecified dementia, unspecified severity, without behavioral disturbance, psychotic disturbance, mood disturbance, and anxiety; W19.XXXA Unspecified fall, initial encounter; I10 Essential (primary) hypertension; J44.9 Chronic obstructive pulmonary disease, unspecified; E11.9 Type 2 diabetes mellitus without complications; Z88.8 Allergy status to other drugs, medicaments and biological substances; Z87.891 Personal history of nicotine dependence
CPT/HCPCS: 36415; 70450; 72125; 80053; 82962; 83735; 85025; 99285

== ENCOUNTER 2020-06-08 05:13 | Emergency (ER) | payer MEDICARE, OTHER ==
--- NOTE | 2020-06-08 05:46 | ER Document Report ---
ED Fall - General Chief Complaint: Fall Stated Complaint: FALL,GENERAL CHECK UP Time Seen by Provider: 06/08/20 05:37 Primary Care Provider: KARO CAVANAUGH MD [Primary Care Provider] - Follow up as needed Notes: Patient is an elderly 79-year-old male with a known history of dementia and multiple ED visits for assortment of complaints mostly falls. He was found on the floor this morning in his usual state of dementia and was referred here for further evaluation. He cannot give any history. Per nursing and EMS there is no sign of trauma however some reason he was placed in a c-collar. When asked if he have any complaints he shakes his head no. TRAVEL OUTSIDE OF THE [place] IN LAST 30 DAYS: No - Related data Allergies/Adverse Reactions: prednisone [Prednisone] Adverse Reaction (Unknown, Verified 03/29/20 20:53) elev bld sugar Past Medical History - General Information source: Emergency Med Personnel Cannot obtain history due to: Dementia - Social History Smoking Status: Unknown if Ever Smoked Family History: None, Reviewed & Not Pertinent - Past Medical History Cardiac Medical History: Reports: Hx Hypertension Denies: Hx Congestive Heart Failure, Hx Coronary Artery Disease, Hx DVT, Hx Heart Attack, Hx Hypercholesterolemia, Hx Pulmonary Embolism Pulmonary Medical History: Reports: Hx Bronchitis, Hx COPD, Hx Pneumonia, Hx Sleep Apnea - Setting of 3.5 on home machine. Denies: Hx Asthma, Hx Tuberculosis Neurological Medical History: Denies: Hx Cerebrovascular Accident, Hx Seizures Endocrine Medical History: Reports: Hx Diabetes Mellitus Type 1. Denies: Hx Diabetes Mellitus Type 2, Hx Hyperthyroidism, Hx Hypothyroidism Renal/ Medical History: Denies: Hx Peritoneal Dialysis Malignancy Medical History: Reports Hx Skin Cancer GI Medical History: Denies: Hx Cirrhosis, Hx Gastroesophageal Reflux Disease, Hx Hepatitis Musculoskeletal Medical History: Reports Hx Arthritis - HAND Psychiatric Medical History: Denies: Hx Depression Infectious Medical History: Denies: Hx C-Diff, Hx Hepatitis, Hx MRSA Past Surgical History: Reports: Other - Complete dental extraction. Finger surgery.. Denies: Hx Pacemaker - Immunizations Hx Diphtheria, Pertussis, Tetanus Vaccination: Yes Hx Pneumococcal Vaccination: 07/13/12 Review of Systems - Review of Systems Notes: REVIEW OF SYSTEMS Dementia PHYSICAL EXAMINATION General: No acute distress, well-nourished Head: Atraumatic, normocephalic ENT: Mouth normal, oropharynx moist, no exudates or tonsillar enlargement Eyes: Conjunctiva normal, pupils equal, lids normal Neck: No JVD, supple, no guarding CVS: Normal rate, regular rhythm, no murmurs Resp: No resp distress, equal and normal breath sounds bilaterally GI: Nondistended, soft, no tenderness to palpation, no rebound or guarding Ext: Chronic leg edema Skin: No rash, warm Lymphatic: No lymphadeopathy noted Neuro: Awake, alert. Face symmetric. Moves all extremities. Physical Exam - Vital signs Vitals: Temp 98.6 F 06/08/20 05:33 Course - Re-evaluation Re-evalutation: 06/08/20 06:04 Patient presents with probable fall from bed with no apparent trauma normal mental status no blood thinners normal vital signs and chronic leg edema Looks well and stable for discharge back to facility. I do not believe he requires imaging. I have discussed with the patient there likely diagnosis, aftercare plan, follow-up plans and my usual and customary return precautions. They verbalized understanding of this. - Vital Signs Vital signs: Temp Pulse Resp BP Pulse Ox 98.6 F 06/08/20 05:33 Discharge - Discharge Clinical Impression: Dementia Qualifiers: Dementia type: unspecified type Dementia behavioral disturbance: without behavioral disturbance Qualified Code(s): F03.90 - Unspecified dementia without behavioral disturbance Condition: Good Disposition: HOME, SELF-CARE Instructions: Dementia ([facility]) Referrals: KARO CAVANAUGH MD [Primary Care Provider] - Follow up as needed
--- NOTE | 2020-06-08 07:19 | RADIOLOGY REPORT (SQ) ---
CLINICAL HISTORY: fall COMPARISON: None. TECHNIQUE: XR PELVIS 1-2 VIEWS 06/08/2020 6:18 AM CDT FINDINGS: There is no fracture. Joint spaces are preserved. Soft tissues are unremarkable. IMPRESSION: No acute osseous findings.
[2020-06-08 07:37] VITALS: BP 141/63
== END 2020-06-08 08:40 | disposition home or self-care (01) ==
LOC: ER 05:13
DX: F03.90 Unspecified dementia, unspecified severity, without behavioral disturbance, psychotic disturbance, mood disturbance, and anxiety (principal); R60.0 Localized edema; I10 Essential (primary) hypertension; J44.9 Chronic obstructive pulmonary disease, unspecified; E10.9 Type 1 diabetes mellitus without complications
CPT/HCPCS: 72170; 99283

== ENCOUNTER 2020-09-18 23:07 | Inpatient (IN) | payer MEDICARE, OTHER ==
--- NOTE | 2020-09-19 00:23 | ER Document Report ---
ED General - General Chief Complaint: Nausea/Vomiting Stated Complaint: SEPTIC Time Seen by Provider: 09/19/20 00:22 Primary Care Provider: LATIA WALLS FNP [Primary Care Provider] - Follow up as needed TRAVEL OUTSIDE OF THE [place] IN LAST 30 DAYS: No - Related Data Allergies/Adverse Reactions: prednisone [Prednisone] Adverse Reaction (Unknown, Verified 03/29/20 20:53) elev bld sugar Past Medical History - Social History Smoking Status: Unknown if Ever Smoked Chew tobacco use (# tins/day): No Frequency of alcohol use: None Drug Abuse: None Family History: None, Reviewed & Not Pertinent - Past Medical History Cardiac Medical History: Reports: Hx Hypertension Denies: Hx Congestive Heart Failure, Hx Coronary Artery Disease, Hx DVT, Hx Heart Attack, Hx Hypercholesterolemia, Hx Pulmonary Embolism Pulmonary Medical History: Reports: Hx Bronchitis, Hx COPD, Hx Pneumonia, Hx Sleep Apnea - Setting of 3.5 on home machine. Denies: Hx Asthma, Hx Tuberculosis Neurological Medical History: Denies: Hx Cerebrovascular Accident, Hx Seizures Endocrine Medical History: Reports: Hx Diabetes Mellitus Type 1. Denies: Hx Diabetes Mellitus Type 2, Hx Hyperthyroidism, Hx Hypothyroidism Renal/ Medical History: Denies: Hx Peritoneal Dialysis Malignancy Medical History: Reports Hx Skin Cancer GI Medical History: Denies: Hx Cirrhosis, Hx Gastroesophageal Reflux Disease, Hx Hepatitis Musculoskeletal Medical History: Reports Hx Arthritis - HAND Psychiatric Medical History: Denies: Hx Depression Infectious Medical History: Denies: Hx C-Diff, Hx Hepatitis, Hx MRSA Past Surgical History: Reports: Other - Complete dental extraction. Finger surgery.. Denies: Hx Pacemaker - Immunizations Hx Diphtheria, Pertussis, Tetanus Vaccination: Yes Hx Pneumococcal Vaccination: 07/13/12 Physical Exam - Vital signs Vitals: Resp BP 23 H 122/68 09/18/20 23:17 09/18/20 23:17 Course - Vital Signs Vital signs: Temp Pulse Resp BP Pulse Ox 100.9 F H 21 H 120/67 98 09/19/20 00:21 09/19/20 00:15 09/19/20 00:15 09/19/20 00:19 - Laboratory Results Result Diagrams: 09/18/20 23:55 09/18/20 23:55 Laboratory Results Interpreted: 09/18/20 23:16 POC Glucose 153 H - EKG Interpretation by Me Additional EKG results interpreted by me: EKG is interpreted by me. Sinus arrhythmia, rate 96 Felt. RBBB. There is a PVC. Nonspecific ST changes. No ST segment elevation. Discharge - Discharge Referrals: LATIA WALLS FNP [Primary Care Provider] - Follow up as needed
[2020-09-19] MEDS ORDERED: POTASSIUM CHLORIDE 20 MEQ PACKET ONE (02:37)
[2020-09-19] MEDS ORDERED: CEFTRIAXONE 1 GM/D5W RTU 1 GM/50 ML RTUPB IV ONE (04:35)
[2020-09-19] MEDS ORDERED: AZITHROMYCIN INJ 500 MG VIAL IV ONE (04:35)
--- NOTE | 2020-09-19 04:42 | ER Document Report ---
Doctor's Note Notes: 09/19/20 04:36 Chart done in downtime documentation, see paper chart. In brief, 79yo M fever onset evening 09/08, RLL opacity, admitted to hospitalist.
[2020-09-19 04:54] LABS: ALBUMIN 3.4 g/dL (3.5-5.0); ALKALINE PHOSPHATASE 91 U/L (38-126); ANION GAP 7 (5-19); ASPARTATE AMINO TRANSFERASE 53 U/L (17-59); BILIRUBIN,DIRECT 0.4 mg/dL (0.0-0.4); BILIRUBIN,TOTAL 1.1 mg/dL (0.2-1.3); BLOOD UREA NITROGEN 42 mg/dL (7-20); CARBON DIOXIDE 32 mmol/L (22-30); CHLORIDE 100 mmol/L (98-107); GLUCOSE 171 mg/dL (75-110); POTASSIUM 3.4 mmol/L (3.6-5.0)
[2020-09-19 04:55] LABS: HEMATOCRIT 37.5 % (37.9-51.0); HEMOGLOBIN 12.5 g/dL (13.5-17.0); MEAN CORPUSCULAR HEMOGLOBIN 28.6 pg (27.0-33.4); MEAN CORPUSCULAR HGB CONC 33.4 g/dL (32.0-36.0); MEAN CORPUSCULAR VOLUME 86 fl (80-97); PLATELET COUNT 173 10^3/uL (150-450); RED BLOOD COUNT 4.39 10^6/uL (4.35-5.55); RED CELL DISTRIBUTION WIDTH 14.5 % (11.5-14.0); WHITE BLOOD COUNT 12.1 10^3/uL (4.0-10.5)
[2020-09-19 04:59] LABS: ABSOLUTE LYMPHOCYTES# (MANUAL) 0.5 10^3/uL (0.5-4.7); ABSOLUTE MONOCYTES # (MANUAL) 0.7 10^3/uL (0.1-1.4); ANISOCYTOSIS SLIGHT; BAND NEUTROPHILS % (MANUAL) 3 % (3-5); BASOPHILS % (MANUAL) 0 % (0-2); EOSINOPHILS % (MANUAL) 0 % (0-6); LYMPHOCYTES % (MANUAL) 4 % (13-45); MONOCYTES % (MANUAL) 6 % (3-13); OVALOCYTES SLIGHT; PLATELET COMMENT ADEQUATE; POIKILOCYTOSIS SLIGHT; SEGMENTED NEUTROPHILS % (MAN) 87 % (42-78); TOTAL CELLS COUNTED 100; TOXIC GRANULATION SLIGHT
[2020-09-19] MEDS ORDERED: IPRATROPIUM/ALBUTEROL 0.5-2.5 MG/3 ML AMPUL NEB PRN (05:32)
--- NOTE | 2020-09-19 05:34 | RADIOLOGY REPORT (SQ) ---
EXAM DESCRIPTION: CHEST SINGLE VIEW IMAGES COMPLETED DATE/TIME: 09/19/2020 4:55 am REASON FOR STUDY: eval conslidation COMPARISON: 07/03/2012 EXAM PARAMETERS: NUMBER OF VIEWS: One view. TECHNIQUE: Single frontal radiographic view of the chest acquired. RADIATION DOSE: NA LIMITATIONS: None. FINDINGS: LUNGS AND PLEURA: Subtle airspace opacities are seen at the right greater than left lung b ases. No pleural effusion. No pneumothorax. MEDIASTINUM AND HILAR STRUCTURES: No masses. Contour normal. HEART AND VASCULAR STRUCTURES: Heart normal in size. Normal vasculature. BONES: No acute findings. HARDWARE: None in the chest. OTHER: No other significant finding. IMPRESSION: Findings may represent a developing bibasilar airspace process. TECHNICAL DOCUMENTATION: JOB ID: [id number] 2010 [employer]- All Rights Reserved Reading location - IP/workstation name: [email or web address]
[2020-09-19] MEDS ORDERED: PHARMACY COMMUNICATION ORDER MC NR (05:45)
[2020-09-19] MEDS ORDERED: DEXTROSE 50%-WATER 25 GM/50 ML DISP.SYRIN IV PRN ×2 (05:53)
[2020-09-19] MEDS ORDERED: DEXTROSE 40% GEL 15 GM TUBE PO PRN ×2 (05:53)
[2020-09-19] MEDS ORDERED: GLUCAGON,HUMAN RECOMB 1 MG INJ IM PRN (05:53)
[2020-09-19 06:02] LABS: APPEARANCE,URINE SLIGHTLY-CLOUDY; BILIRUBIN,URINE NEGATIVE (NEGATIVE); COLOR,URINE AMBER; GLUCOSE, URINE NEGATIVE (NEGATIVE); KETONES,URINE TRACE mg/dL (NEGATIVE); LEUKOCYTE ESTERASE,URINE NEGATIVE (NEGATIVE); NITRITE,URINE NEGATIVE (NEGATIVE); PROTEIN,URINE 30 mg/dL (NEGATIVE); URINE SPECIFIC GRAVITY 1.027
[2020-09-19] MEDS: INSULIN REG, HUMAN 100 UNIT/ML 3 ML VIAL (PYX) SUBCUT SCH ×4 (06:30→23:46)
[2020-09-19 06:42] LABS: INTERNATIONAL RATION (INR) 1.13; PROTHROMBIN TIME 14.7 SEC (11.4-15.4)
--- NOTE | 2020-09-19 07:40 | PDOC H&P ---
History of Present Illness Admission Date/PCP: VÍCTOR TITUS Patient complains of: fever History of Present Illness: DELLA ZHAO is a 79 year old male The patient is suffering from advanced dementia. He is unable to provide any history. [facility] is a [facility]. He developed fever up to 103 in the nursing facility and he was sent to the emergency department for evaluation. In the emergency department he was febrile. He was hemodynamically stable. He was placed on nasal oxygen. Blood cultures were obtained. Chest x-ray showed right lower lobe infiltrate. Coronavirus test was negative. The patient was given ceftriaxone and Zithromax. When I evaluated him he was sleeping but he woke up. He could not answer any question. He was talking but he did not make any sense. He was resisting exam. He was noncooperative. He did not appear to be in pain or respiratory distress. According to [facility] report the patient is usually unable to communicate. Past Medical History Cardiac Medical History: Reports: Hypertension Pulmonary Medical History: Reports: Bronchitis, Chronic Obstructive Pulmonary Disease (COPD), Pneumonia, Sleep Apnea - Setting of 3.5 on home machine. EENT Medical History: Denies: None, Cataracts, Eyes, Ears, Nose, Throat, Other Neurological Medical History: Reports: None Endocrine Medical History: Reports: Diabetes Mellitus Type 2 Renal/ Medical History: Reports: None Malignancy Medical History: Reports: Skin Cancer GI Medical History: Reports: None Musculoskeltal Medical History: Reports: Arthritis - HAND Skin Medical History: Reports: None Psychiatric Medical History: Reports: Other - Advanced dementia Denies: Depression Hematology: Denies: Anemia Infectious Medical History: Denies: Clostridium Difficile, Methicillin-Resistant Staph Aureus Past Surgical History Past Surgical History: Reports: Other - Finger surgery Denies: Pacemaker Social History Information Source: Relative Lives with: Jail Smoking Status: Unknown if Ever Smoked Electronic Cigarette use?: No Frequency of Alcohol Use: Occasional Hx Recreational Drug Use: No Drugs: None Hx Prescription Drug Abuse: No - Advance Directive Resuscitation Status: Full Code Surrogate healthcare decision maker:: His daughter Family History Family History: Other - Unable to review family history. Parental Family History Reviewed: No - Unable to obtain information Children Family History Reviewed: No Sibling(s) Family History Reviewed.: No Medication/Allergy Home Medications: Albuterol Sulfate [Proair HFA] 2 puff IN Q12HP PRN 04/07/17 Hydrochlorothiazide 12.5 mg PO DAILY 04/07/17 Insulin Glargine,Hum.rec.anlog [Lantus (Pyxis) Insulin 100 Unit/1 ml 10 ml] 40 unit SUBCUT QHS 04/07/17 Insulin Lispro [Humalog] 5 unit SQ PC 04/07/17 Lorazepam [Ativan 0.5 mg Tablet] 0.5 mg PO Q12 04/07/17 Primidone [Mysoline 50 mg Tablet] 50 mg PO BID@0800,1500 04/07/17 Rivastigmine [Exelon 4.6 mg/24 Hr Transdermal Patch] 1 each TD DAILY 04/07/17 Sertraline HCl 25 mg PO Q12 02/07/18 Albuterol Sulfate [Ventolin Hfa] 2 puff IH PRN PRN 05/21/18 Donepezil HCl 1 tab PO DAILY 05/21/18 Insulin Detemir [Levemir Flextouch] 05/21/18 Memantine HCl [Namenda Xr] 1 tab PO DAILY 05/21/18 Metformin HCl 1 tab PO DAILY 05/21/18 Allergies/Adverse Reactions: prednisone [Prednisone] Adverse Reaction (Unknown, Verified 03/29/20 20:53) elev bld sugar Review of Systems ROS unobtainable: Due to mental status - The patient is unable to communicate., Other - Some information was obtained from the daughter. Constitutional: PRESENT: weakness Gastrointestinal: ABSENT: diarrhea, vomiting Genitourinary: PRESENT: other - Incontinent Integumentary: ABSENT: rash Neurological: PRESENT: confusion Psychiatric: PRESENT: other - Dementia with behavior problems sometimes. Physical Exam Vital Signs: Temp Pulse Resp BP Pulse Ox 100.9 F H 21 H 120/67 98 09/19/20 00:21 09/19/20 00:15 09/19/20 00:15 09/19/20 00:19 Intake & Output 09/18/20 09/19/20 09/20/20 06:59 06:59 06:59 Intake Total 250 Balance 250 Weight 93.894 kg General appearance: PRESENT: no acute distress, other - The patient is noncooperative, resisting exam. Unable to answer any question. Head exam: PRESENT: atraumatic Eye exam: PRESENT: EOMI, PERRLA. ABSENT: conjunctival injection Neck exam: ABSENT: carotid bruit, JVD, lymphadenopathy, thyromegaly Respiratory exam: PRESENT: rhonchi. ABSENT: accessory muscle use Cardiovascular exam: PRESENT: RRR. ABSENT: diastolic murmur, rubs, systolic murmur Pulses: PRESENT: normal dorsalis pedis pul Vascular exam: PRESENT: normal capillary refill GI/Abdominal exam: PRESENT: normal bowel sounds, soft. ABSENT: distended, guarding, mass, organolmegaly, rebound, tenderness Rectal exam: PRESENT: deferred Extremities exam: ABSENT: joint swelling, pedal edema, tenderness Musculoskeletal exam: ABSENT: deformity Neurological exam: PRESENT: other - Sleeping but wakes up. Confused. Talking but he does not make any sense. Unable to answer any question. Moves all 4 extremities. Psychiatric exam: PRESENT: agitated - Sleeping but when wakes up gets agitated Skin exam: ABSENT: rash Results Laboratory Results: 09/18/20 23:55 09/18/20 23:55 09/18/20 09/18/20 09/18/20 23:55 23:55 23:55 WBC 12.1 H RBC 4.39 Hgb 12.5 L Hct 37.5 L MCV 86 MCH 28.6 MCHC 33.4 RDW 14.5 H Plt Count 173 Seg Neutrophils % Not Reportable Sodium 139.1 Potassium 3.4 L Chloride 100 Carbon Dioxide 32 H Anion Gap 7 BUN 42 H Creatinine 1.37 H Est GFR ( Amer) > 60 Glucose 171 H Lactic Acid 2.2 H Calcium 9.0 Magnesium Total Bilirubin 1.1 AST 53 Alkaline Phosphatase 91 Total Protein 7.0 Albumin 3.4 L Urine Color Urine Appearance Urine pH Ur Specific Martha Urine Protein Urine Glucose (UA) Urine Ketones Urine Blood Urine Nitrite Ur Leukocyte Esterase Urine WBC (Auto) Urine RBC (Auto) 09/18/20 09/19/20 09/19/20 23:55 01:42 03:30 WBC RBC Hgb Hct MCV MCH MCHC RDW Plt Count Seg Neutrophils % Sodium Potassium Chloride Carbon Dioxide Anion Gap BUN Creatinine Est GFR ( Amer) Glucose Lactic Acid 1.8 Calcium Magnesium 2.1 Total Bilirubin AST Alkaline Phosphatase Total Protein Albumin Urine Color Cancelled Urine Appearance Cancelled Urine pH Cancelled Ur Specific Martha Cancelled Urine Protein Cancelled Urine Glucose (UA) Cancelled Urine Ketones Cancelled Urine Blood Cancelled Urine Nitrite Cancelled Ur Leukocyte Esterase Cancelled Urine WBC (Auto) Cancelled Urine RBC (Auto) Cancelled 09/19/20 03:50 WBC RBC Hgb Hct MCV MCH MCHC RDW Plt Count Seg Neutrophils % Sodium Potassium Chloride Carbon Dioxide Anion Gap BUN Creatinine Est GFR ( Amer) Glucose Lactic Acid Calcium Magnesium Total Bilirubin AST Alkaline Phosphatase Total Protein Albumin Urine Color TIFFANIE Urine Appearance SLIGHTLY-CLOUDY Urine pH 5.0 Ur Specific Martha 1.027 Urine Protein 30 H Urine Glucose (UA) NEGATIVE Urine Ketones TRACE H Urine Blood NEGATIVE Urine Nitrite NEGATIVE Ur Leukocyte Esterase NEGATIVE Urine WBC (Auto) 5 Urine RBC (Auto) 2 Impressions: Chest X-Ray 09/19/20 00:24 IMPRESSION: Findings may represent a developing bibasilar airspace process. Assessment and Plan - Diagnosis (1) Pneumonia Qualifiers: Pneumonia type: due to unspecified organism Laterality: right Lung location: lower lobe of lung Is this a current diagnosis for this admission?: Yes Plan: Continue ceftriaxone and Zithromax. Blood cultures pending. Try to obtain sputum culture, I doubt we can. I made him n.p.o. for now in concern for possible aspiration. Speech therapy swallowing evaluation. Follow speech therapy recommendation for diet consistency. (2) COPD (chronic obstructive pulmonary disease) Qualifiers: COPD type: unspecified COPD Qualified Code(s): J44.9 - Chronic obstructive pulmonary disease, unspecified Is this a current diagnosis for this admission?: Yes Plan: Use bronchodilators as needed. (3) Diabetes mellitus Qualifiers: Diabetes mellitus type: type 2 Diabetes mellitus watermelon inspector insulin use: with watermelon inspector use Diabetes mellitus complication status: without complication Qualified Code(s): E11.9 - Type 2 diabetes mellitus without complications; Z79.4 - halfway (current) use of insulin Is this a current diagnosis for this admission?: Yes Plan: Hold regularly scheduled insulin. Monitor blood glucose. Correction dose insulin as needed. (4) Dementia Qualifiers: Dementia type: Alzheimer's disease Dementia behavioral disturbance: with behavioral disturbance Is this a current diagnosis for this admission?: Yes Plan: There is concern for dysphagia. He is going to have dysphagia evaluation by speech therapy. (5) Acute encephalopathy Is this a current diagnosis for this admission?: Yes Plan: Probable he is little more confused than usually secondary to pneumonia. - Plan Summary Summary: The patient was a [facility] resident was admitted with high fever and pulmonary infiltrate suggestive of pneumonia. He is going to be treated with in travenous antibiotics. There is concern for possible aspiration, he is n.p.o. for now. Intravenous hydration. DVT prophylaxis. I discussed the case with the patient's daughter. She confirmed the CODE STATUS as full code. - Time Time Spent with patient: 25-34 minutes Medications reviewed and adjusted accordingly: Yes Anticipated Discharge Disposition: [facility] Care Facility Anticipated Discharge Timeframe: within 72 hours - Inpatient Certification Based on my medical assessment, after consideration of the patient's comorbidities, presenting symptoms, or acuity I expect that the services needed warrant INPATIENT care.: Yes I certify that my determination is in accordance with my understanding of Medicare's requirements for reasonable and necessary INPATIENT services [42 CFR 412.3e].: Yes Medical Necessity: Failure to Improve With Outpatient Therapy, Need For IV Fluids, Need for IV Antibiotics
[2020-09-19 08:58] LABS: VENOUS BLOOD BASE EXCESS 1.7 mmol/L; VENOUS BLOOD HCO3 23.9 mmol/L (20-32); VENOUS BLOOD PCO2 30.3 mmHg (35-63); VENOUS BLOOD PH 7.51 (7.30-7.42)
[2020-09-19] MEDS ORDERED: ACETAMINOPHEN 650 MG SUPP.RECT PR ONE ×3 (09:29→09:39)
[2020-09-19] MEDS ORDERED: ACETAMINOPHEN 120 MG SUPP.RECT PR ONE (09:29)
[2020-09-19] MEDS ORDERED: ACETAMINOPHEN 650 MG SUPP.RECT PR PRN (09:39)
[2020-09-19] MEDS: ENOXAPARIN SODIUM INJ 40 MG/0.4 ML DISP.SYRIN SUBCUT SCH (10:21)
[2020-09-19] MEDS: POTASSI CL 20 MEQ/NS 1L 1,000 ML IV PRN ×2 (11:48→20:24)
--- NOTE | 2020-09-19 14:20 | EKG REPORT ---
SEVERITY:- ABNORMAL ECG - SINUS TACHYCARDIA VENTRICULAR PREMATURE COMPLEX RIGHT BUNDLE BRANCH BLOCK : Confirmed by: Veronica Hernandez MD 19-Sep-2020 14:19:24
[2020-09-19] MEDS ORDERED: ALBUTEROL SULFATE HFA (90 MCG/PUFF) 8 GM MDI IH PRN ×2 (17:02→17:31)
[2020-09-19] MEDS ORDERED: LORAZEPAM INJ 2 MG/1 ML VIAL IV PRN (17:03)
[2020-09-19] MEDS ORDERED: ALBUTEROL SULFATE HFA (90 MCG/PUFF) 8 GM MDI (1 MDI/ER DISP) IH SCH (18:00)
--- NOTE | 2020-09-19 19:48 | Progress Note ---
Provider Note Provider Note: He is an 79-year-old male with a past medical history significant for advanced dementia, nonverbal at baseline, assisted resident, with COPD, MIRACLE, who was admitted early this morning by the cow trimmer hypertension, DM 2, arthritis for right lower lobe pneumonia. Overnight events, vital signs, nursing notes, laboratory results, imaging reports, H&P, and orders reviewed. Agree with plan of care as established by the previous provider. Blood and urine cultures remain pending. Patient continues on IV azithromycin and ceftriaxone. Continuing as needed nebulizer treatments. Discussed with ST; recommending continued NPO status. Planning for MBSS. Have placed order for PA Tylenol as the patient is strictly n.p.o. per speech therapy's recommendations at this time. Home medications have been reconciled. He is on multiple medications for mood and behavioral disturbances. As he remains n.p.o., will schedule Haldol 1 mg IV every 12 and provide for Ativan 0.5 mg IV every 8 as needed. He utilizes both of these as scheduled oral medications at home. Family has been to the patient's bedside; have confirmed FULL CODE status.
[2020-09-19] MEDS: CEFTRIAXONE 1 GM/D5W RTU 1 GM/50 ML RTUPB IV SCH (22:26)
[2020-09-19] MEDS: HALOPERIDOL LACTATE INJ 5 MG/1 ML VIAL IV SCH (22:26)
[2020-09-19] MEDS: ALBUTEROL SULFATE HFA (90 MCG/PUFF) 8 GM MDI IH SCH (22:27)
[2020-09-19] MEDS: AZITHROMYCIN 500 MG in DEXTROSE 5%-WATER 250 ML IV SCH (22:27)
[2020-09-20] MEDS: INSULIN REG, HUMAN 100 UNIT/ML 3 ML VIAL (PYX) SUBCUT SCH ×3 (05:23→17:24)
[2020-09-20] MEDS: POTASSI CL 20 MEQ/NS 1L 1,000 ML IV PRN (05:31)
[2020-09-20 08:00] LABS: HEMATOCRIT 33.8 % (37.9-51.0); HEMOGLOBIN 11.5 g/dL (13.5-17.0); MEAN CORPUSCULAR HEMOGLOBIN 28.9 pg (27.0-33.4); MEAN CORPUSCULAR HGB CONC 33.9 g/dL (32.0-36.0); MEAN CORPUSCULAR VOLUME 85 fl (80-97); PLATELET COUNT 169 10^3/uL (150-450); RED BLOOD COUNT 3.97 10^6/uL (4.35-5.55); RED CELL DISTRIBUTION WIDTH 14.4 % (11.5-14.0); WHITE BLOOD COUNT 8.2 10^3/uL (4.0-10.5)
[2020-09-20 08:23] LABS: BLOOD UREA NITROGEN 30 mg/dL (7-20); CALCIUM 8.5 mg/dL (8.4-10.2); GLUCOSE 116 mg/dL (75-110); POTASSIUM 3.8 mmol/L (3.6-5.0)
[2020-09-20 08:28] LABS: CARBON DIOXIDE 31 mmol/L (22-30); CHLORIDE 109 mmol/L (98-107)
[2020-09-20 08:35] LABS: ANION GAP 4 (5-19)
[2020-09-20] MEDS: ENOXAPARIN SODIUM INJ 40 MG/0.4 ML DISP.SYRIN SUBCUT SCH (10:50)
[2020-09-20] MEDS: HALOPERIDOL LACTATE INJ 5 MG/1 ML VIAL IV SCH ×2 (10:50→23:20)
[2020-09-20] MEDS: ALBUTEROL SULFATE HFA (90 MCG/PUFF) 8 GM MDI IH SCH ×2 (10:51→23:22)
--- NOTE | 2020-09-20 12:19 | CDI QUERY ---
CDI Query CDI Review: Dear Provider, Please clarify / specify, if possible type PNA and encephalopathy noted in progress notes: ACUTE METABOLIC ENCEPHALOPATHY? ACUTE TOXIC ENCEPHALOPATHY? OTHER? ASPIRATION PNA COMPLEX PNA PNA D/T PNA unspecified Thanks, Carmen Díaz, CDI [phone]
[2020-09-20] MEDS ORDERED: RINGERS SOLUTION,LACTATED 1,000 ML IV PRN (15:54)
--- NOTE | 2020-09-20 16:12 | PDOC PROGRESS REPORT ---
Subjective Date:: 09/20/20 Subjective:: He is an 79-year-old male with a past medical history significant for advanced dementia, nonverbal at baseline, shelter resident, with COPD, MIRACLE, who was admitted 09/19/2020 with right lower lobe pneumonia. Patient is seen on morning rounds. He is awake and alert. He smiles at me when I enter the room and reaches for me. He is oriented to self. Says good morning. He is socially appropriate; makes eye contact, smiles, and responds to me with a mix of clear statements and incoherent speech. ROS is therefore limited. He does tell me that he is hungry; otherwise voices no questions or complaints. No concerns per nursing. Reason For Visit: PNEUOMONIA, AND REQUIRED BIGEMINY Physical Exam Vital Signs: Temp Pulse Resp BP Pulse Ox 98.0 F 83 20 121/64 100 09/20/20 08:09 09/20/20 14:00 09/20/20 08:09 09/20/20 08:09 09/20/20 08:09 Intake & Output 09/19/20 09/20/20 09/21/20 06:59 06:59 06:59 Intake Total 250 2600 200 Balance 250 2600 200 Weight 93.894 kg 66.4 kg General appearance: PRESENT: no acute distress, well-developed, well-nourished Head exam: PRESENT: atraumatic, normocephalic Eye exam: PRESENT: conjunctiva pink, EOMI, PERRLA. ABSENT: scleral icterus Mouth exam: PRESENT: moist, tongue midline Teeth exam: PRESENT: poor dentation Respiratory exam: PRESENT: clear to auscultation tomas, symmetrical, unlabored, other - room air. ABSENT: rales, rhonchi, wheezes Cardiovascular exam: PRESENT: RRR. ABSENT: diastolic murmur, rubs, systolic murmur Pulses: PRESENT: normal dorsalis pedis pul Vascular exam: PRESENT: normal capillary refill GI/Abdominal exam: PRESENT: normal bowel sounds, soft. ABSENT: distended, guarding, mass, organolmegaly, rebound, tenderness Rectal exam: PRESENT: deferred Extremities exam: PRESENT: full ROM. ABSENT: calf tenderness, clubbing, pedal edema Neurological exam: PRESENT: alert, awake, oriented to person, other - Socially appropriate; interacts well with me. Smiles/makes eye contact. Unable to answer questions clearly/consistently. Did well with speech therapy today.. ABSENT: motor sensory deficit Psychiatric exam: PRESENT: appropriate affect, normal mood. ABSENT: homicidal ideation, suicidal ideation Skin exam: PRESENT: dry, intact, warm. ABSENT: cyanosis, rash Results Laboratory Results: 09/20/20 06:37 09/20/20 06:37 09/20/20 09/20/20 06:37 06:37 WBC 8.2 RBC 3.97 L Hgb 11.5 L Hct 33.8 L MCV 85 MCH 28.9 MCHC 33.9 RDW 14.4 H Plt Count 169 Sodium 143.5 Potassium 3.8 Chloride 109 H Carbon Dioxide 31 H Anion Gap 4 L BUN 30 H Creatinine 0.95 Est GFR ( Amer) > 60 Glucose 116 H Calcium 8.5 Impressions: Chest X-Ray 09/19/20 00:24 IMPRESSION: Findings may represent a developing bibasilar airspace process. Assessment and Plan - Diagnosis (1) Pneumonia Qualifiers: Pneumonia type: due to unspecified organism Laterality: right Lung location: lower lobe of lung Is this a current diagnosis for this admission?: Yes Plan: Likely aspiration as patient leukocytosis, hypoxia, and fever have rapidly resolved. Has also been found to have some dysphagia w/ aspiration risk (ST found the patient had a large orange peel in his mouth >12 hours after he arrived from SNF). Blood cultures are negative at 24 hours. Sputum cultures pending Patient is provided supplemental oxygen as needed maintain saturations greater than 89%. Now maintaining oxygen saturations on room air. Patient is empirically placed on azithromycin and ceftriaxone; day #2. As needed nebulizer treatments. Pulmonary toilet is encouraged with position change and early ambulation. (2) Diabetes mellitus Qualifiers: Diabetes mellitus type: type 2 Diabetes mellitus snf insulin use: with intermediate accountant use Diabetes mellitus complication status: without complication Qualified Code(s): E11.9 - Type 2 diabetes mellitus without complications; Z79.4 - jail (current) use of insulin Is this a current diagnosis for this admission?: Yes Plan: We will check A1c with a.m. lab work. Patient is placed on a consistent carb diet. Holding long acting insulin at this time to prevent hypoglycemia. Accu-Cheks before meals and at bedtime with Humalog for sliding scale coverage. Hypoglycemia protocol in place. (3) COPD (chronic obstructive pulmonary disease) Qualifiers: COPD type: unspecified COPD Qualified Code(s): J44.9 - Chronic obstructive pulmonary disease, unspecified Is this a current diagnosis for this admission?: Yes Plan: Use bronchodilators as needed. On antibiotics for RLL PNA. No indications for steroid therapy at this time. (4) Dementia Qualifiers: Dementia type: Alzheimer's disease Dementia behavioral disturbance: with behavioral disturbance Is this a current diagnosis for this admission?: Yes Plan: Resume home medication regimen. Supportive care. (5) Acute encephalopathy Is this a current diagnosis for this admission?: Yes Plan: Resolved; now at baseline. Acute metabolic encephalopathy secondary to infectious/inflammatory process (RLL PNA) in setting of advanced dementia. (6) Dysphagia Is this a current diagnosis for this admission?: Yes Plan: Speech therapy consultation obtained. Recommending thin liquids and pured diet at this time. - Time Time Spent with patient: 25-34 minutes Medications reviewed and adjusted accordingly: Yes Anticipated Discharge Disposition: Senior Living Facility Anticipated Discharge Timeframe: within 24 hours
[2020-09-20] MEDS: HALOPERIDOL 1 MG TABLET PO SCH (17:24)
[2020-09-20] MEDS ORDERED: DIVALPROEX SODIUM 250 MG TABLET.DR PO SCH (22:00)
[2020-09-20] MEDS ORDERED: MELATONIN 1 MG TABLET PO SCH (22:00)
[2020-09-20] MEDS: CEFTRIAXONE 1 GM/D5W RTU 1 GM/50 ML RTUPB IV SCH (23:15)
[2020-09-20] MEDS: BUPROPION HCL 75 MG TABLET PO SCH (23:24)
[2020-09-21] MEDS: AZITHROMYCIN 500 MG in DEXTROSE 5%-WATER 250 ML IV SCH (01:08)
[2020-09-21] MEDS: INSULIN REG, HUMAN 100 UNIT/ML 3 ML VIAL (PYX) SUBCUT SCH ×2 (01:08→05:49)
[2020-09-21 07:06] LABS: HEMATOCRIT 32.4 % (37.9-51.0); MEAN CORPUSCULAR HEMOGLOBIN 28.9 pg (27.0-33.4); MEAN CORPUSCULAR HGB CONC 34.1 g/dL (32.0-36.0); MEAN CORPUSCULAR VOLUME 85 fl (80-97); PLATELET COUNT 193 10^3/uL (150-450); RED BLOOD COUNT 3.82 10^6/uL (4.35-5.55); RED CELL DISTRIBUTION WIDTH 14.1 % (11.5-14.0); WHITE BLOOD COUNT 5.8 10^3/uL (4.0-10.5)
[2020-09-21 07:31] LABS: ANION GAP 7 (5-19); BLOOD UREA NITROGEN 23 mg/dL (7-20); CALCIUM 8.1 mg/dL (8.4-10.2); CARBON DIOXIDE 26 mmol/L (22-30); CHLORIDE 108 mmol/L (98-107); GLUCOSE 124 mg/dL (75-110); POTASSIUM 3.9 mmol/L (3.6-5.0)
[2020-09-21] MEDS ORDERED: BENZTROPINE MESYLATE 1 MG TABLET PO SCH (10:00)
[2020-09-21] MEDS ORDERED: (PENDING PHARMACY ID) (Bupropion Hcl [Bupropion Xl] 150 MG Tab.Er.24h) PO SCH (10:00)
[2020-09-21 10:13] VITALS: BP 138/68
--- NOTE | 2020-09-21 10:26 | PDOC TRANSFER SUMMARY ---
Impression - Admit/DC Date/PCP Admission Date/Primary Care Provider: 09/19/20 07:18 VÍCTOR TITUS Discharge Date: 09/21/20 - Discharge Diagnosis (1) Pneumonia Is this a current diagnosis for this admission?: Yes (2) Diabetes mellitus Is this a current diagnosis for this admission?: Yes (3) COPD (chronic obstructive pulmonary disease) Is this a current diagnosis for this admission?: Yes (4) Dementia Is this a current diagnosis for this admission?: Yes (5) Acute encephalopathy Is this a current diagnosis for this admission?: Yes (6) Dysphagia Is this a current diagnosis for this admission?: Yes - Additional Information Resuscitation Status: Full Code Discharge Diet: Diabetic, Other (Comments) - pureed, thin liquids w/ aspiration precautions. Advance to [facility] ground as tolerated. Discharge Activity: Activity As Tolerated, Balance Activity w/Rest, Supervised Activity Referrals: LATIA WALLS FNP [Primary Care Provider] - (Follow up with your pcp within 1 week.) Prescriptions: Amoxicillin Trihydrate [Amoxil 500 mg Capsule] 500 mg PO Q8 #30 capsule Home Medications: Albuterol Sulfate [Ventolin Hfa] 2 puff IH BID 05/21/18 Acetaminophen [Tylenol 325 mg Tablet] 650 mg PO Q6HP PRN 09/19/20 Albuterol Sulfate [Ventolin Hfa 8 gm Mdi] 2 puff IH Q4HP PRN 09/19/20 Bacitracin Zinc [Bacitracin Oint 15 gm] 1 applic TP DAILY 09/19/20 Benztropine Mesylate [Cogentin 1 mg Tablet] 1 mg PO DAILY 09/19/20 Bupropion HCl [Bupropion Xl] 150 mg PO DAILY 09/19/20 Clotrimazole/Betamethasone Dip [Lotrisone Cream] 15 gm TP TID 09/19/20 Divalproex Sodium [Depakote] 250 mg PO QHS 09/19/20 Furosemide [Lasix 40 mg Tablet] 40 mg PO QAM 09/19/20 Haloperidol [Haldol 1 mg Tablet] 1 mg PO BID 09/19/20 Insulin Lispro [Humalog Kwikpen U-100] 0 unit SQ .SLD SCALE 09/19/20 Lorazepam [Ativan 1 mg Tablet] 1 mg PO BID 09/19/20 Melatonin 2 mg PO QHS 09/19/20 Potassium Citrate [Potassium Citrate ER] 10 meq PO DAILY 09/19/20 Acetaminophen [Tylenol 650 mg Supp] 650 mg DC Q4HP PRN supp.rect 09/21/20 Amoxicillin Trihydrate [Amoxil 500 mg Capsule] 500 mg PO Q8 #30 capsule 09/21/20 Insulin Detemir [Levemir Insulin 100 units/mL Insulin Pen] 4 unit SUBCUT QHS #0 09/21/20 History of Present Illiness History of Present Illness: Per H&P by Dr. Coon: DELLA ZHAO is a 79 year old male The patient is suffering from advanced dementia. He is unable to provide any history. He is a snf resident. He developed fever up to 103 in the nursing facility and he was sent to the emergency department for evaluation. In the emergency department he was febrile. He was hemodynamically stable. He was placed on nasal oxygen. Blood cultures were obtained. Chest x-ray showed right lower lobe infiltrate. Coronavirus test was negative. The patient was given ceftriaxone and Zithromax. When I evaluated him he was sleeping but he woke up. He could not answer any question. He was talking but he did not make any sense. He was resisting exam. He was noncooperative. He did not appear to be in pain or respiratory distress. According to snf report the patient is usually unable to communicate. Hospital Course Hospital Course: (1) Pneumonia Likely aspiration as patient leukocytosis, hypoxia, and fever have rapidly resolved. Has also been found to have some dysphagia w/ aspiration risk (ST found the vandana ent had a large orange peel in his mouth >12 hours after he arrived from SNF). Blood cultures are negative at 48 hours. Patient was provided supplemental oxygen as needed maintain saturations greater than 89%. Now maintaining oxygen saturations on room air. Patient was empirically placed on azithromycin and ceftriaxone; day #2. At discharge, he should continue Augmentin x10 day course. As needed nebulizer treatments. Pulmonary toilet is encouraged with position change and early ambulation. (2) Diabetes mellitus A1C 4.8% Continue consistent carb diet. Recommend decreasing/discontinuing long acting insulin. For a patient of this age, and life expectancy, at risk for falls, it is recommended that goal A1C is <8.5%. Continue glucose checks before meals and at bedtime with sliding scale coverage. (3) COPD (chronic obstructive pulmonary disease) Use bronchodilators as needed. On antibiotics for RLL PNA. No indications for steroid therapy at this time. (4) Dementia Continue home medication regimen. Supportive care. (5) Acute encephalopathy Resolved; now at baseline. Acute metabolic encephalopathy secondary to infectious/inflammatory process (RLL PNA) in setting of advanced dementia. (6) Dysphagia Speech therapy consultation obtained. Recommending thin liquids and pured diet at this time. Continue aspiration precautions with supervised meals. Physical Exam Vital Signs: Temp Pulse Resp BP Pulse Ox 98.8 F 83 20 121/62 95 09/21/20 09:29 09/21/20 07:00 09/21/20 03:32 09/21/20 03:32 09/21/20 03:32 Intake & Output 09/20/20 09/21/20 09/22/20 06:59 06:59 06:59 Intake Total 2600 1177 Balance 2600 1177 Weight 66.4 kg 71.7 kg General appearance: PRESENT: no acute distress, cooperative, well-developed, well-nourished Head exam: PRESENT: atraumatic, normocephalic Eye exam: PRESENT: conjunctiva pink, EOMI, PERRLA. ABSENT: scleral icterus Mouth exam: PRESENT: moist, tongue midline Teeth exam: PRESENT: poor dentation Respiratory exam: PRESENT: clear to auscultation tomas, symmetrical, unlabored, other - room air. ABSENT: rales, rhonchi, wheezes Cardiovascular exam: PRESENT: RRR. ABSENT: diastolic murmur, rubs, systolic murmur Pulses: PRESENT: normal dorsalis pedis pul Vascular exam: PRESENT: normal capillary refill GI/Abdominal exam: PRESENT: normal bowel sounds, soft. ABSENT: distended, gu arding, mass, organolmegaly, rebound, tenderness Rectal exam: PRESENT: deferred Extremities exam: PRESENT: full ROM. ABSENT: calf tenderness, clubbing, pedal edema Neurological exam: PRESENT: alert, awake, oriented to person, CN II-XII grossly intact, other - Socially appropriate; interacts well with me. Smiles/makes eye contact. Unable to answer questions clearly/consistently. Follows simple directions.. ABSENT: motor sensory deficit Psychiatric exam: PRESENT: appropriate affect, normal mood. ABSENT: homicidal ideation, suicidal ideation Skin exam: PRESENT: dry, intact, warm. ABSENT: cyanosis, rash Results Laboratory Results: WBC 5.8 10^3/uL (4.0-10.5) 09/21/20 06:20 RBC 3.82 10^6/uL (4.35-5.55) L 09/21/20 06:20 Hgb 11.0 g/dL (13.5-17.0) L 09/21/20 06:20 Hct 32.4 % (37.9-51.0) L 09/21/20 06:20 MCV 85 fl (80-97) 09/21/20 06:20 MCH 28.9 pg (27.0-33.4) 09/21/20 06:20 MCHC 34.1 g/dL (32.0-36.0) 09/21/20 06:20 RDW 14.1 % (11.5-14.0) H 09/21/20 06:20 Plt Count 193 10^3/uL (150-450) 09/21/20 06:20 Lymph % (Auto) Not Reportable 09/18/20 23:55 [place] % (Auto) Not Reportable 09/18/20 23:55 Eos % (Auto) Not Reportable 09/18/20 23:55 Baso % (Auto) Not Reportable 09/18/20 23:55 Absolute Neuts (auto) Not Reportable 09/18/20 23:55 Absolute Lymphs (auto) Not Reportable 09/18/20 23:55 Absolute Monos (auto) Not Reportable 09/18/20 23:55 Absolute Eos (auto) Not Reportable 09/18/20 23:55 Absolute Basos (auto) Not Reportable 09/18/20 23:55 Total Counted 100 09/18/20 23:55 Seg Neutrophils % Not Reportable 09/18/20 23:55 Seg Neuts % (Manual) 87 % (42-78) H 09/18/20 23:55 Band Neutrophils % 3 % (3-5) 09/18/20 23:55 Lymphocytes % (Manual) 4 % (13-45) L 09/18/20 23:55 Monocytes % (Manual) 6 % (3-13) 09/18/20 23:55 Eosinophils % (Manual) 0 % (0-6) 09/18/20 23:55 Basophils % (Manual) 0 % (0-2) 09/18/20 23:55 Abs Neuts (Manual) 10.9 10^3/uL (1.7-8.2) H 09/18/20 23:55 Abs Lymphs (Manual) 0.5 10^3/uL (0.5-4.7) 09/18/20 23:55 Abs Monocytes (Manual) 0.7 10^3/uL (0.1-1.4) 09/18/20 23:55 Absolute Eos (Manual) 0.0 10^3/uL (0.0-0.6) 09/18/20 23:55 Abs Basophils (Manual) 0.0 10^3/uL (0.0-0.2) 09/18/20 23:55 Toxic Granulation SLIGHT 09/18/20 23:55 Platelet Comment ADEQUATE 09/18/20 23:55 Poikilocytosis SLIGHT 09/18/20 23:55 Anisocytosis SLIGHT 09/18/20 23:55 Ovalocytes SLIGHT 09/18/20 23:55 PT 14.7 SEC (11.4-15.4) 09/18/20 23:55 INR 1.13 09/18/20 23:55 VBG pH 7.51 (7.30-7.42) H 09/19/20 08:42 VBG pCO2 30.3 mmHg (35-63) L 09/19/20 08:42 VBG HCO3 23.9 mmol/L (20-32) 09/19/20 08:42 VBG Base Excess 1.7 mmol/L 09/19/20 08:42 Sodium 140.8 mmol/L (137-145) 09/21/20 06:20 Potassium 3.9 mmol/L (3.6-5.0) 09/21/20 06:20 Chloride 108 mmol/L (98-107) H 09/21/20 06:20 Carbon Dioxide 26 mmol/L (22-30) 09/21/20 06:20 Anion Gap 7 (5-19) 09/21/20 06:20 BUN 23 mg/dL (7-20) H 09/21/20 06:20 Creatinine 0.82 mg/dL (0.52-1.25) 09/21/20 06:20 Est GFR ( Amer) > 60 (>60) 09/21/20 06:20 Est GFR (MDRD) Non-Af > 60 (>60) 09/21/20 06:20 Glucose 124 mg/dL (75-110) H 09/21/20 06:20 POC Glucose 172 mg/dL (70-110) H 09/21/20 08:02 Hemoglobin A1c % 4.8 % (4.7-6.0) 09/21/20 06:20 Lactic Acid 1.7 mmol/L (0.7-2.1) 09/19/20 09:24 Calcium 8.1 mg/dL (8.4-10.2) L 09/21/20 06:20 Magnesium 2.1 mg/dL (1.6-2.3) 09/18/20 23:55 Total Bilirubin 1.1 mg/dL (0.2-1.3) 09/18/20 23:55 Direct Bilirubin 0.4 mg/dL (0.0-0.4) 09/18/20 23:55 Neonat Total Bilirubin Not Reportable 09/18/20 23:55 Neonat Direct Bilirubin Not Reportable 09/18/20 23:55 Neonat Indirect Bili Not Reportable 09/18/20 23:55 AST 53 U/L (17-59) 09/18/20 23:55 ALT 29 U/L (<50) 09/18/20 23:55 Alkaline Phosphatase 91 U/L (38-126) 09/18/20 23:55 Total Protein 7.0 g/dL (6.3-8.2) 09/18/20 23:55 Albumin 3.4 g/dL (3.5-5.0) L 09/18/20 23:55 Urine Color TIFFANIE 09/19/20 03:50 Urine Appearance SLIGHTLY-CLOUDY 09/19/20 03:50 Urine pH 5.0 (5.0-9.0) 09/19/20 03:50 Ur Specific [place] 1.027 09/19/20 03:50 Urine Protein 30 mg/dL (NEGATIVE) H 09/19/20 03:50 Urine Glucose (UA) NEGATIVE mg/dL (NEGATIVE) 09/19/20 03:50 Urine Ketones TRACE mg/dL (NEGATIVE) H 09/19/20 03:50 Urine Blood NEGATIVE (NEGATIVE) 09/19/20 03:50 Urine Nitrite NEGATIVE (NEGATIVE) 09/19/20 03:50 Urine Bilirubin NEGATIVE (NEGATIVE) 09/19/20 03:50 Urine Urobilinogen 4.0 mg/dL (<2.0) H 09/19/20 03:50 Ur Leukocyte Esterase NEGATIVE (NEGATIVE) 09/19/20 03:50 Urine WBC (Auto) 5 /HPF 09/19/20 03:50 Urine RBC (Auto) 2 /HPF 09/19/20 03:50 U Hyaline Cast (Auto) 4 /LPF 09/19/20 03:50 Urine Bacteria (Auto) TRACE /HPF 09/19/20 03:50 Urine Red Cell Clumps Cancelled 09/19/20 01:42 Urine WBC Clumps Cancelled 09/19/20 01:42 Squamous Epi Cells Auto Cancelled 09/19/20 01:42 U Non-Squamous Epis Auto Cancelled 09/19/20 01:42 Calcium Carbonate Cryst Cancelled 09/19/20 01:42 Calcium Phosphate Cryst Cancelled 09/19/20 01:42 Calcium Oxalate Cr Auto Cancelled 09/19/20 01:42 Leucine Crystals Cancelled 09/19/20 01:42 Cystine Crystals Cancelled 09/19/20 01:42 Uric Acid Cryst (Auto) Cancelled 09/19/20 01:42 Triple Phos Cryst (Auto) Cancelled 09/19/20 01:42 Tyrosine Crystals Cancelled 09/19/20 01:42 Amorphous Sediment Auto Cancelled 09/19/20 01:42 Cellular Casts Cancelled 09/19/20 01:42 Epithelial Casts (Auto) Cancelled 09/19/20 01:42 Fatty Casts Cancelled 09/19/20 01:42 Granular Casts (Auto) Cancelled 09/19/20 01:42 Waxy Casts (Auto) Cancelled 09/19/20 01:42 Broad Casts Cancelled 09/19/20 01:42 RBC Casts (Auto) Cancelled 09/19/20 01:42 WBC Casts (Auto) Cancelled 09/19/20 01:42 Urine Mucus (Auto) FEW /LPF 09/19/20 03:50 U Trichomonas (Auto) Cancelled 09/19/20 01:42 Ur Yeast w Hyphae Cancelled 09/19/20 01:42 Urine Yeast (Budding) Cancelled 09/19/20 01:42 Urine Ascorbic Acid NEGATIVE (NEGATIVE) 09/19/20 03:50 Dany Human Metapneumo PCR NOT DETECTED (NOT DETECT) 09/19/20 01:09 Adenovirus (PCR) NOT DETECTED (NOT DETECT) 09/19/20 01:09 B. pertussis DNA (PCR) NOT DETECTED (NOT DETECT) 09/19/20 01:09 B.parapertussis DNA PCR NOT DETECTED (NOT DETECT) 09/19/20 01:09 C. pneumoniae DNA (PCR) NOT DETECTED (NOT DETECT) 09/19/20 01:09 Coronavirus OC43 (PCR) NOT DETECTED (NOT DETECT) 09/19/20 01:09 Coronavirus HKU1 (PCR) NOT DETECTED (NOT DETECT) 09/19/20 01:09 Coronavirus 229E (PCR) NOT DETECTED (NOT DETECT) 09/19/20 01:09 Coronavirus NL63 (PCR) NOT DETECTED (NOT DETECT) 09/19/20 01:09 Influenza A (H1) PCR NOT DETECTED (NOT DETECT) 09/19/20 01:09 Influ A (H1N1/09) PCR NOT DETECTED (NOT DETECT) 09/19/20 01:09 Influenza A (H3) PCR NOT DETECTED (NOT DETECT) 09/19/20 01:09 Influenza Type A (PCR) NOT DETECTED (NOT DETECT) 09/19/20 01:09 Influenza Type B (PCR) NOT DETECTED (NOT DETECT) 09/19/20 01:09 M. pneumoniae (PCR) NOT DETECTED (NOT DETECT) 09/19/20 01:09 Parainfluenza 1 (PCR) NOT DETECTED (NOT DETECT) 09/19/20 01:09 Parainfluenza 2 (PCR) NOT DETECTED (NOT DETECT) 09/19/20 01:09 Parainfluenza 3 (PCR) NOT DETECTED (NOT DETECT) 09/19/20 01:09 Parainfluenza 4 (PCR) NOT DETECTED (NOT DETECT) 09/19/20 01:09 RSV (PCR) NOT DETECTED (NOT DETECT) 09/19/20 01:09 Entero/Rhino (PCR) NOT DETECTED (NOT DETECT) 09/19/20 01:09 SARS-CoV-2 (PCR) NOT DETECTED (NOT DETECT) 09/19/20 01:09 Impressions: Chest X-Ray 09/19/20 00:24 IMPRESSION: Findings may represent a developing bibasilar airspace process. Plan Plan of Treatment: Patient is discharged to [facility] where he is an established resident. Recommend he follow up with his PCP within 1 week. Complete course of antibiotic therapy. Continue pureed diet w/ thin liquids. Supervised meals with aspiration precautions. Recommend further speech therapy evaluations w/ progression to a soft/mechanically ground diet. Patient would also benefit from PT evaluation. Resume home medication regiment; unchanged. Return to the emergency department, as needed, for concerning symptoms. Time Spent: Greater than 30 Minutes Stroke Is this a Stroke Patient?: No Acute Heart Failure Is this a Heart Failure Patient?: No
[2020-09-21] MEDS: BUPROPION HCL 75 MG TABLET PO SCH (11:03)
[2020-09-21] MEDS: HALOPERIDOL LACTATE INJ 5 MG/1 ML VIAL IV SCH (11:03)
[2020-09-21] MEDS: HALOPERIDOL 1 MG TABLET PO SCH (11:03)
[2020-09-21] MEDS: ENOXAPARIN SODIUM INJ 40 MG/0.4 ML DISP.SYRIN SUBCUT SCH (11:04)
[2020-09-21] MEDS: ALBUTEROL SULFATE HFA (90 MCG/PUFF) 8 GM MDI IH SCH (11:05)
[2020-09-21] MEDS ORDERED: AMOXICILLIN TRIHYDRATE 500 MG CAPSULE PO SCH (14:00)
== END 2020-09-21 12:04 | DRG 177 ==
LOC: ER 23:07 → EH 09-19 07:18 → 3S 09-19 09:57
PROVIDERS: ADMIT Internal Medicine; ATTEND Registered Nurse
DX: J69.0 Pneumonitis due to inhalation of food and vomit (principal); G93.41 Metabolic encephalopathy; F02.80 Dementia in other diseases classified elsewhere, unspecified severity, without behavioral disturbance, psychotic disturbance, mood disturbance, and anxiety; G30.9 Alzheimer's disease, unspecified; Z20.828 Contact with and (suspected) exposure to other viral communicable diseases; I10 Essential (primary) hypertension; J44.9 Chronic obstructive pulmonary disease, unspecified; G47.30 Sleep apnea, unspecified; E11.9 Type 2 diabetes mellitus without complications; M19.049 Primary osteoarthritis, unspecified hand; Z79.4 Long term (current) use of insulin; R13.10 Dysphagia, unspecified
CPT/HCPCS: 0202U; 36415; 71045; 80048; 80053; 81001; 82803; 82962; 83036; 83605; 83735; 85025; 85027; 85610; 87040; 87086; 93005; 93010; 96365; 96368; 99285; J0456; J0696; J1630; J1650; J1815; J2060; J3480; J3490; J7060; J7120

== ENCOUNTER 2020-10-12 16:11 | Emergency (ER) | payer MEDICARE ==
[2020-10-12 17:44] LABS: ABSOLUTE LYMPHOCYTES (AUTO) 0.4 10^3/uL (0.5-4.7); ABSOLUTE MONOCYTES (AUTO) 0.3 10^3/uL (0.1-1.4); ABSOLUTE NEUT (AUTO) 2.2 10^3/uL (1.7-8.2); BASOPHILS % (AUTO) 0.6 % (0-2); EOSINOPHILS % (AUTO) 0.3 % (0-6); HEMATOCRIT 36.8 % (37.9-51.0); HEMOGLOBIN 12.3 g/dL (13.5-17.0); MEAN CORPUSCULAR HEMOGLOBIN 27.8 pg (27.0-33.4); MEAN CORPUSCULAR HGB CONC 33.5 g/dL (32.0-36.0); MEAN CORPUSCULAR VOLUME 83 fl (80-97); MONOCYTES % (AUTO) 10.7 % (3-13); PLATELET COUNT 104 10^3/uL (150-450); RED BLOOD COUNT 4.44 10^6/uL (4.35-5.55); RED CELL DISTRIBUTION WIDTH 15.1 % (11.5-14.0); SEGMENTED NEUTROPHILS % (AUTO) 73.4 % (42-78); TOTAL CELLS COUNTED % (AUTO) 100 %; WHITE BLOOD COUNT 2.9 10^3/uL (4.0-10.5)
[2020-10-12 17:46] LABS: ALBUMIN 3.8 g/dL (3.5-5.0); ALKALINE PHOSPHATASE 84 U/L (38-126); ANION GAP 5 (5-19); ASPARTATE AMINO TRANSFERASE 34 U/L (17-59); BILIRUBIN,DIRECT 0.3 mg/dL (0.0-0.4); BILIRUBIN,TOTAL 0.8 mg/dL (0.2-1.3); BLOOD UREA NITROGEN 34 mg/dL (7-20); CALCIUM 8.5 mg/dL (8.4-10.2); CARBON DIOXIDE 36 mmol/L (22-30); CHLORIDE 94 mmol/L (98-107); GLUCOSE 180 mg/dL (75-110); POTASSIUM 3.7 mmol/L (3.6-5.0); TOTAL PROTEIN 7.3 g/dL (6.3-8.2)
--- NOTE | 2020-10-12 23:19 | RADIOLOGY REPORT (SQ) ---
EXAM DESCRIPTION: XR CHEST 1 VIEW COMPLETED DATE/TME: 10/12/2020 22:52 CLINICAL HISTORY: 79 years, Male, Cough COMPARISON: 09/19/2020 chest NUMBER OF VIEWS: 1 TECHNIQUE: Portable chest LIMITATIONS: None. FINDINGS: Heart size is normal. Atheromatous change thoracic aorta. Osteopenia. No pneumothorax. Mild elevation of left hemidiaphragm. Lungs are clear IMPRESSION: No acute cardiopulmonary process copyright 2010 [employer]- All Rights Reserved
[2020-10-12 23:40] LABS: INTERNATIONAL RATION (INR) 0.93; PROTHROMBIN TIME 12.7 SEC (11.4-15.4)
[2020-10-12 23:41] LABS: PARTIAL THROMBOPLASTIN TIME 25.2 SEC (23.5-35.8)
[2020-10-12 23:44] LABS: C-REACTIVE PROTEIN 38.6 mg/L (<10.0)
--- NOTE | 2020-10-12 23:44 | EKG REPORT ---
SEVERITY:- ABNORMAL ECG - SINUS RHYTHM RIGHT BUNDLE BRANCH BLOCK : Confirmed by: Rosemarie Alfaro 12-Oct-2020 23:43:40
--- NOTE | 2020-10-13 00:15 | ER Document Report ---
ED General - General Chief Complaint: General Weakness Stated Complaint: WEAKNESS Time Seen by Provider: 10/12/20 21:11 Primary Care Provider: LATIA WALLS FNP [Primary Care Provider] - Follow up as needed Mode of Arrival: Medic Information source: Emergency Med Personnel Cannot obtain history due to: Dementia TRAVEL OUTSIDE OF THE [place] IN LAST 30 DAYS: No - HPI Notes: Patient sent in from assisted living facility because of reports of lethargy and low-grade fever. Patient is completely demented and can give no meaningful history himself. Evidently had pneumonia couple weeks ago and they were concerned that the symptoms seem the same now. No other history is available to us. - Related Data Allergies/Adverse Reactions: prednisone [Prednisone] Adverse Reaction (Unknown, Verified 10/12/20 16:12) elev bld sugar Past Medical History - General Information source: [facility] Records - Social History Smoking Status: Unknown if Ever Smoked Family History: Other - Unable to review family history. - Medical History Medical History: Other Notes: Past medical history as documented in the electronic health record is reviewed. - Past Medical History Cardiac Medical History: Reports: Hx Hypertension Denies: Hx Congestive Heart Failure, Hx Coronary Artery Disease, Hx DVT, Hx Heart Attack, Hx Hypercholesterolemia, Hx Pulmonary Embolism Pulmonary Medical History: Reports: Hx Bronchitis, Hx COPD, Hx Pneumonia, Hx Sleep Apnea - Setting of 3.5 on home machine. Denies: Hx Asthma, Hx Tuberculosis Neurological Medical History: Denies: Hx Cerebrovascular Accident, Hx Seizures Endocrine Medical History: Reports: Hx Diabetes Mellitus Type 1, Hx Diabetes Mellitus Type 2. Denies: Hx Hyperthyroidism, Hx Hypothyroidism Renal/ Medical History: Denies: Hx Peritoneal Dialysis Malignancy Medical History: Reports Hx Skin Cancer GI Medical History: Denies: Hx Cirrhosis, Hx Gastroesophageal Reflux Disease, Hx Hepatitis Musculoskeletal Medical History: Reports Hx Arthritis - HAND Psychiatric Medical History: Denies: Hx Depression Infectious Medical History: Denies: Hx C-Diff, Hx Hepatitis, Hx MRSA Past Surgical History: Reports: Other - Finger surgery. Denies: Hx Pacemaker - Immunizations Hx Diphtheria, Pertussis, Tetanus Vaccination: Yes Hx Pneumococcal Vaccination: 07/13/12 Review of Systems - Review of Systems -: Yes ROS unobtainable due to patient's medical condition Physical Exam - Vital signs Vitals: Temp 98.5 F 10/12/20 16:11 - Notes Notes: This is an elderly cachectic chronically ill-appearing male lying in bed. Vital signs and nursing documentation are reviewed. HEENT: His membranes are moist. Exam is otherwise grossly unremarkable. Lungs: Fair air entry bilaterally. No wheezes rhonchi rales appreciated. Heart: Distant tones regular rate and rhythm no murmur. Abdomen: Soft nontender no masses organomegaly. Neuro: Patient is awake. He appears alert but does not respond at all to verbal stimuli or commands. Course - Re-evaluation Re-evalutation: 10/13/20 00:14 Patient remains hemodynamically stable throughout his stay. His rapid Covid antigen in the ambulance was positive so I did not repeat a Covid test here. H is chest x-ray did not show any active pneumonia. The rest of his labs were stable for him. His oxygenation was good. There is no indication for acute care hospitalization. I spoke with his daughter who is his guardian. She was in agreement with sending him back to his facility. We talked about using ivermectin. I emphasized that this was not a procedure that was FDA approved no was not recommended by NIH or any other governmental body. We talked about the risk benefits alternatives and the daughter wished to proceed with ivermectin 12 mg x 2 doses. Orders for that were submitted to the patient's pharmacy. - Vital Signs Vital signs: Temp Pulse Resp BP Pulse Ox 98.5 F 17 124/69 96 10/12/20 16:11 10/12/20 18:01 10/12/20 18:01 10/12/20 18:01 - Laboratory Results Result Diagrams: 10/12/20 16:33 10/12/20 16:33 Laboratory Results Interpreted: 10/12/20 10/12/20 10/12/20 16:33 16:33 17:10 WBC 2.9 L Hgb 12.3 L Hct 36.8 L RDW 15.1 H Plt Count 104 L Absolute Lymphs (auto) 0.4 L Sodium 135.3 L Chloride 94 L Carbon Dioxide 36 H BUN 34 H Glucose 180 H POC Glucose 184 H Critical Laboratory Results Reviewed: No Critical Results - Radiology Results Radiology Results Interpreted: 10/13/20 00:13 Chest X-Ray 10/12/20 21:56 IMPRESSION: No acute cardiopulmonary process copyright 2011 [employer]- All Rights Reserved Critical Radiology Results Reviewed: No Critical Results Discharge - Discharge Clinical Impression: COVID-19 Condition: Stable Disposition: HOME-ASSISTED LIVING Additional Instructions: Ivermectin 12 mg x 2 doses has been prescribed for COVID-19. Please administer this according to label directions. As discussed with the patient's guardian this is not an FDA approved nor NIH recommended treatment. Follow-up with primary care in 72 hours for recheck, sooner if not improving. Return if any other concerning symptoms develop. Prescriptions: Ivermectin [Stromectol 3 mg Tablet] 3 mg PO ASDIR #24 mg Referrals: LATIA WALLS FNP [Primary Care Provider] - Follow up as needed
[2020-10-13 01:08] VITALS: BP 148/67
== END 2020-10-13 01:08 | disposition home health service (06) ==
LOC: ER 16:11
DX: U07.1 COVID-19 (principal); J44.9 Chronic obstructive pulmonary disease, unspecified; F03.90 Unspecified dementia, unspecified severity, without behavioral disturbance, psychotic disturbance, mood disturbance, and anxiety; I10 Essential (primary) hypertension; E11.9 Type 2 diabetes mellitus without complications; Z87.01 Personal history of pneumonia (recurrent)
CPT/HCPCS: 36415; 71045; 80053; 82728; 82962; 83615; 83735; 84484; 85025; 85610; 85730; 86140; 93005; 93010; 99285